=== PATIENT | male | born 1975 | race Caucasian/White ===

== ENCOUNTER 2016-11-06 01:27 | Emergency (ER) | payer BC, OTHER ==
--- NOTE | 2016-11-06 03:22 | ED NURSING NOTES ---
Clinical Report - Nurses [facility] [address] [place] [address] 11/06/2016 1:27 Patient: BISHOP GLOVER TRIAGE Triage time 01:Nov 06 2016. Acuity: LEVEL 3. Chief Complaint: SKIN LESION and BOIL. 01:36 11/06/16. SEPSIS SCREEN: Sepsis Screen. Negative (no infection suspected/documented). DASHAWN COMA SCORE: [place] Coma Scale: 15- eyes open spontaneously (4); best verbal response- oriented and converses (5); best motor response- obeys commands (6). --01:40 Abeba Powell R.N. 01:36 11/06/16. BP: 144/100. HR: 100. RR: 18. O2 saturation: 96%. Temp: 98.2 F. Pain level now 5/10. --01:40 Abeba Powell R.N. Weight: 155.1 kg stated. Height/Length: 74 inches Per Patient. BMI: 43.9. --01:36 Abeba Powell R.N. Medications MetFORMIN HCl Oral. --01:38 Abeba Powell R.N. Medication/allergy information source: the patient. --01:40 Abeba Powell R.N. Allergies No Known Drug Allergy. --01:38 Abeba Powell R.N. History Arrived by private vehicle. Historian: patient. Accompanied by family. Reported as (right antecubital fossa). This started today. Onset. (8 hours). It is described as burning and painful. No fever. 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 PAST MEDICAL HX: Immunizations: up-to-date. SOCIAL HX: Heavy tobacco smoker (cigarette)- 1 pack per day. Regular alcohol use. History of drug use: cocaine. (6 days ago). No infectious disease exposure. ABUSE ASSESSMENT: No report of abuse. SELF HARM ASSESSMENT: A self harm assessment was performed. The patient answered "no" to the question "Have you recently felt down, depressed, or hopeless?", "Have you noticed less interest or pleasure in doing things?", "Do you have thoughts of harming or killing yourself?", "Are you here because you tried to hurt yourself?", "Have you ever tried to hurt yourself before today?", "Have you recently had thoughts about harming or killing others?" and "Do you have any dangerous items in your possession?". NUTRITIONAL RISK ASSESSMENT: The nutritional risk assessment revealed no deficiencies. FUNCTIONAL ASSESSMENT: Functional assessment: no impairments noted. LEARNING NEEDS ASSESSMENT: The learning needs assessment revealed no barriers. SKIN INTEGRITY ASSESSMENT: Skin integrity risk assessment completed. No skin integrity risk identified. --01:40 Abeba Powell R.N. PROBLEMS: Hypertension. Leukocytosis. Sick Contact. Pancreatitis. Abscess. Pulmonary Embolism. Diabetes Mellitus. --01:38 Abeba Powell R.N. ADDITIONAL SURGERIES: Dental Surgery. Knee Surgery. --01:38 Abeba Powell R.N. Interventions ID band on patient. --01:40 Abeba Powell R.N. PHYSICAL ASSESSMENT 01:43 11/06/16. GENERAL / NEURO / PSYCH: Alert. Oriented X 4. HEENT: Pupils equal, round and reactive to light. Mucous membranes are pink. CVS: Capillary refill less than 2 seconds. GI / : Abdomen nontender. SKIN: Skin is warm and dry. Skin tenderness present- abcess at right AC fossa, pain and tenderness. Increased warmth present. Erythema present. --01:43 Abeba Powell R.N. NURSING PROGRESS NOTES 01:43 11/06/16. Patient identifiers checked. Call light placed in reach. Side rails up x 1. Bed placed in lowest position. Brakes of bed on. ( I&D cart to room). --01:43 Abeba Powell R.N. 02:30 11/06/2016 Bupivacaine Injection Injectable 0.5 % given. Allergies verified and confirmed 5 rights. (given locally by for i&D). --02:48 Abeba Powell R.N. 02:30 11/06/2016 Bactrim DS (Sulfamethoxazole-TMP DS) PO Tablets 2 tab given. Allergies verified and confirmed 5 rights. --02:49 Abeba Powell R.N. 02:52 11/06/2016 Keflex (Cephalexin) PO Capsules 500 mg given. Allergies verified and confirmed 5 rights. --02:55 Abeba Powell R.N. 02:52 11/06/2016 Hydrocodone-APAP (Hydrocodone-Acetaminophen) PO 5/325 mg Tablets 1 tab given. Allergies verified, confirmed 5 rights and sedative warning given to the patient. --02:55 Abeba Powell R.N. 02:52 11/06/2016 Zofran ODT (Ondansetron) PO Oral Disintegrating Tablets 4 mg given. Allergies verified and confirmed 5 rights. --02:55 Abeba Powell R.N. 02:54 11/06/2016 SILVER NITRATE APPLICATOR (Silver Nitrate Applicator) Topical Topical Solution 1 application. Allergies verified and confirmed 5 rights. (given to MD to apply locally). --02:54 Abeba Powell R.N. DISPOSITION / DISCHARGE 03:37 11/06/16. Condition at departure: improved and stable. The goals identified in the patient's plan of care were met. No learning barriers present. Reviewed medication(s) side effects, precautions, dosing and course information. Prescription(s) given to the patient. Reviewed referral to a primary care physician for followup. Summary of care provided to patient via paper. Patient verbalized understanding. Written instructions provided in [place]ij[place]. The patient was discharged home and accompanied by family. He left the Emergency Department ambulatory and via private vehicle. Family member driving. FALL RISK ASSESSMENT: Fall risk assessment completed. No fall risk identified. --03:37 Abeba Powell R.N. 03:37 11/06/16. BP: 148/88. HR: 90. RR: 16. O2 saturation: 100%. Temp: 98.0 F. Pain level now 4/10. --03:37 Abeba Powell R.N. Departure time: 03:37 Nov 06 2016. --03:37 Abeba Powell R.N. Locked/Released at 11/06/2016 3:37 by Abeba Powell R.N.
--- NOTE | 2016-11-06 03:22 | ED ORDER SUMMARY ---
..... Patient: BISHOP GLOVER OrderSheet [facility] VisitID: [id number] [place] [address] 41y, M Registration Date/Time: 11/06/2016 ORDER SHEET Weight: 155.1 kg (stated) Allergies: No Known Drug Allergy GENERAL ORDERS: Culture, Wound Surface (Arm) (right AC area) Urgent (02:51 11/06/2016 [facility]) (Ack 2:56 SBaldwin) (3:14 SBaldwin) MEDICATION ORDERS: Bupivacaine Injection 0.5 % (soln) (NOW, place at bedside) (02:31 11/06/2016 [facility]) (2:48 EInderbitzen R.N.) Bactrim DS PO (Tablet 800-160 mg) 2 tabs (NOW) (02:32 11/06/2016 [facility]) (2:49 EInderbitzen R.N.) Silver Nitrate Applicator Topical 1 application (NOW) (02:45 11/06/2016 [facility]) (2:54 EInderbitzen R.N.) Keflex PO 500 mg (NOW) (02:45 11/06/2016 [facility]) (2:55 EInderbitzen R.N.) Hydrocodone-APAP PO 5/325 mg (NOW, HIGH ALERT MEDICATION) (02:47 11/06/2016 [facility]) (2:55 EInderbitzen R.N.) Zofran ODT PO 4 mg (NOW) (02:47 11/06/2016 [facility]) (2:55 EInderbitzen R.N.) IV FLUIDS: ORDER SHEET NOTES: [Electronically signed by Abeba Powell R.N. (03:37 11/06/2016)] [Electronically signed by Keyshawn Ivey DO (16:26 11/06/2016)] [Electronically locked/signed by Abeba Powell R.N. (03:37 11/06/2016)]
--- NOTE | 2016-11-06 03:22 | ED CLINICAL REPORT ---
Clinical Report - Physicians/Mid Levels [facility] [address] [place] [address] 11/06/2016 1:27 Patient: BSIHOP GLOVER Time Seen: 02:22. Arrived- By private vehicle. Historian- patient. HISTORY OF PRESENT ILLNESS Chief Complaint: TENDER AREA. 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 It was gradual in onset and has been waxing/waning. It is described as painful. It has been located on the right upper extremity. A cause has been identified (injection drug use (right AC)). Similar symptoms previously: Recent medical care: Not recently seen/assessed. REVIEW OF SYSTEMS No fever, chills, difficulty breathing or vomiting. PAST HISTORY See nurses notes. PCP: Franki Denis PROBLEMS: Hypertension. Leukocytosis. Sick Contact. Pancreatitis. Abscess. Pulmonary Embolism. Diabetes Mellitus Substance abuse SURGERIES: Dental Surgery. Knee Surgery. Abscess I&D. SOCIAL HISTORY Smoker- current status unknown. Regular alcohol use. History of IV drug use: cocaine. 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 Recently used drugs days ago. ADDITIONAL NOTES The nursing notes have been reviewed. PHYSICAL EXAM Vital Signs: 11/06/2016 01:36 BP: 144/100. HR: 100. RR: 18. O2 saturation: 96%. Temp: 98.2 F. Appearance: Alert. Oriented X3. Anxious. Patient in mild distress. Eyes: Conjunctivae and eyelids normal. ENT: Nose normal. Respiratory: No respiratory distress. Breath sounds normal. Abdomen: Nontender and nontender. Obese. Skin: No cyanosis. No pallor. No diaphoresis. Medium tender indurated area with fluctuance and cellulitis (Right AC area). No pointing or drainage. Cellulitis. (Old scaring left AC area). Extremities: (Right AC area with cellulitis and induration; no lymphangitis). Neuro: Oriented X 3. No motor deficit. No sensory deficit. LABS, X-RAYS, AND EKG Microbiology: Abscess culture ordered. Pulse Oximetry: 11/06/2016 01:36 O2 saturation: 96%. (FIO2 - room air). Interpretation: normal. PROGRESS AND PROCEDURES Incision & Drainage of Abscess: The abscess is located in the right forearm (Right AC area). The risks of the procedure, benefits and alternatives were explained. Consent was obtained. Local anesthesia provided using 0.50% Marcaine no epi. The abscess was incised with a #11 surgical blade. A small amount of pus was drained. Cavity was irrigated with saline and packed with gauze. Sample obtained for cultures and gram stain. A dressing was applied. Estimated blood loss: 3 mL. ( Wound cauderized with AgNO). Course of Care: Hydrocodone/APAP 5 mg PO given. Bactrim DS 2 tabs PO. Keflex 500 mg PO given. Zofran 4 mg ODT PO given. Patient/family counseled. Old ED records reviewed. Disposition: Discharged. Condition: stable and improved. CLINICAL IMPRESSION Cellulitis of the right upper arm. Single superficial abscess to the right upper extremity with incision and drainage. Occasional substance abuse- tobacco (cigarettes), cocaine. INSTRUCTIONS Do not work for three days. Drink plenty of fluids. Do not smoke. Seek medical help to quit smoking. Warnings: Further evaluation is necessary. It is very important to follow up with a physician. SEDATIVE MEDICATION: You were given sedative medication during your visit. Do not drive or operate dangerous machinery. CONTROLLED SUBSTANCE WARNINGS. GENERAL WARNINGS: Return or contact your physician immediately if your condition worsens or changes unexpectedly, if not improving as expected, or if other problems arise. Your Current Medications: CONTINUE TAKING THE FOLLOWING MEDICATIONS: MetFORMIN HCl Oral. Prescription Medications: Hydrocodone/APAP 5mg / 325mg: take 1 orally every 8 hours as needed for pain. Dispense five (5). No refill. Bactrim DS 800 mg / 160 mg: take 1 tablet orally every 12 hours for 10 days. No refill. Substitution is permissible. Keflex 500 mg: take 1 capsule orally every 6 hours for 10 days. No refill. Substitution is permissible. OTC Medications: Acetaminophen (available over the counter): take according to label instructions. Motrin (available over the counter): take according to label instructions. Follow-up: Follow up with your doctor Franki Denis in about two days for wound check. (Electronically signed by Keyshawn Ivey DO 11/06/2016 16:26)
--- NOTE | 2016-11-06 03:22 | ED CLINICAL REPORT ---
Clinical Report - Physicians/Mid Levels [facility] [address] [place] [address] 11/06/2016 1:27 Patient: BISHOP GLOVER Time Seen: 02:22. Arrived- By private vehicle. Historian- patient. HISTORY OF PRESENT ILLNESS Chief Complaint: TENDER AREA. 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 It was gradual in onset and has been waxing/waning. It is described as painful. It has been located on the right upper extremity. A cause has been identified (injection drug use (right AC)). Similar symptoms previously: Recent medical care: Not recently seen/assessed. REVIEW OF SYSTEMS No fever, chills, difficulty breathing or vomiting. PAST HISTORY See nurses notes. PCP: Franki Denis PROBLEMS: Hypertension. Leukocytosis. Sick Contact. Pancreatitis. Abscess. Pulmonary Embolism. Diabetes Mellitus Substance abuse SURGERIES: Dental Surgery. Knee Surgery. Abscess I&D. SOCIAL HISTORY Smoker- current status unknown. Regular alcohol use. History of IV drug use: cocaine. 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 Recently used drugs days ago. ADDITIONAL NOTES The nursing notes have been reviewed. PHYSICAL EXAM Vital Signs: 11/06/2016 01:36 BP: 144/100. HR: 100. RR: 18. O2 saturation: 96%. Temp: 98.2 F. Appearance: Alert. Oriented X3. Anxious. Patient in mild distress. Eyes: Conjunctivae and eyelids normal. ENT: Nose normal. Respiratory: No respiratory distress. Breath sounds normal. Abdomen: Nontender and nontender. Obese. Skin: No cyanosis. No pallor. No diaphoresis. Medium tender indurated area with fluctuance and cellulitis (Right AC area). No pointing or drainage. Cellulitis. (Old scaring left AC area). Extremities: (Right AC area with cellulitis and induration; no lymphangitis). Neuro: Oriented X 3. No motor deficit. No sensory deficit. LABS, X-RAYS, AND EKG Microbiology: Abscess culture ordered. Pulse Oximetry: 11/06/2016 01:36 O2 saturation: 96%. (FIO2 - room air). Interpretation: normal. PROGRESS AND PROCEDURES Incision & Drainage of Abscess: The abscess is located in the right forearm (Right AC area). The risks of the procedure, benefits and alternatives were explained. Consent was obtained. Local anesthesia provided using 0.50% Marcaine no epi. The abscess was incised with a #11 surgical blade. A small amount of pus was drained. Cavity was irrigated with saline and packed with gauze. Sample obtained for cultures and gram stain. A dressing was applied. Estimated blood loss: 3 mL. ( Wound cauderized with AgNO). Course of Care: Hydrocodone/APAP 5 mg PO given. Bactrim DS 2 tabs PO. Keflex 500 mg PO given. Zofran 4 mg ODT PO given. Patient/family counseled. Old ED records reviewed. Disposition: Discharged. Condition: stable and improved. CLINICAL IMPRESSION Cellulitis of the right upper arm. Single superficial abscess to the right upper extremity with incision and drainage. Occasional substance abuse- tobacco (cigarettes), cocaine. INSTRUCTIONS Do not work for three days. Drink plenty of fluids. Do not smoke. Seek medical help to quit smoking. Warnings: Further evaluation is necessary. It is very important to follow up with a physician. SEDATIVE MEDICATION: You were given sedative medication during your visit. Do not drive or operate dangerous machinery. CONTROLLED SUBSTANCE WARNINGS. GENERAL WARNINGS: Return or contact your physician immediately if your condition worsens or changes unexpectedly, if not improving as expected, or if other problems arise. Your Current Medications: CONTINUE TAKING THE FOLLOWING MEDICATIONS: MetFORMIN HCl Oral. Prescription Medications: Hydrocodone/APAP 5mg / 325mg: take 1 orally every 8 hours as needed for pain. Dispense five (5). No refill. Bactrim DS 800 mg / 160 mg: take 1 tablet orally every 12 hours for 10 days. No refill. Substitution is permissible. Keflex 500 mg: take 1 capsule orally every 6 hours for 10 days. No refill. Substitution is permissible. OTC Medications: Acetaminophen (available over the counter): take according to label instructions. Motrin (available over the counter): take according to label instructions. Follow-up: Follow up with your doctor Franki Denis in about two days for wound check. (Electronically signed by Keyshawn Ivey DO 11/06/2016 16:26)
--- NOTE | 2016-11-06 03:22 | ED ORDER SUMMARY ---
..... Patient: BISHOP GLOVER OrderSheet [facility] VisitID: [id number] [place] [address] 41y, M Registration Date/Time: 11/06/2016 ORDER SHEET Weight: 155.1 kg (stated) Allergies: No Known Drug Allergy GENERAL ORDERS: Culture, Wound Surface (Arm) (right AC area) Urgent (02:51 11/06/2016 [facility]) (Ack 2:56 SBaldwin) (3:14 SBaldwin) MEDICATION ORDERS: Bupivacaine Injection 0.5 % (soln) (NOW, place at bedside) (02:31 11/06/2016 [facility]) (2:48 EInderbitzen R.N.) Bactrim DS PO (Tablet 800-160 mg) 2 tabs (NOW) (02:32 11/06/2016 [facility]) (2:49 EInderbitzen R.N.) Silver Nitrate Applicator Topical 1 application (NOW) (02:45 11/06/2016 [facility]) (2:54 EInderbitzen R.N.) Keflex PO 500 mg (NOW) (02:45 11/06/2016 [facility]) (2:55 EInderbitzen R.N.) Hydrocodone-APAP PO 5/325 mg (NOW, HIGH ALERT MEDICATION) (02:47 11/06/2016 [facility]) (2:55 EInderbitzen R.N.) Zofran ODT PO 4 mg (NOW) (02:47 11/06/2016 [facility]) (2:55 EInderbitzen R.N.) IV FLUIDS: ORDER SHEET NOTES: [Electronically signed by Abeba Powell R.N. (03:37 11/06/2016)] [Electronically signed by Keyshawn Ivey DO (16:26 11/06/2016)] [Electronically locked/signed by Abeba Powell R.N. (03:37 11/06/2016)]
--- NOTE | 2016-11-06 16:26 | ED MAR SUMMARY ---
..... Medication Administration Record [facility] [address] [place] [address] Patient: BISHOP GLOVER Visit ID: [id number] 41y, M Weight: 155.1 kg Height/Length: 74 in BMI: 43.9 ALLERGIES: No Known Drug Allergy Given 02:11/06/2016 Abeba Powell R.N. Medication Administered: BUPIVACAINE [INJECTION], Dose: 0.5 % Injectable Injection. Medication Ordered: Bupivacaine Injection 0.5 % (soln) (NOW, place at bedside). Given 02:11/06/2016 Abeba Powell R.N. Medication Administered: BACTRIM DS [PO] (SULFAMETHOXAZOLE-TMP DS), Dose: 2 tab Tablets PO. Medication Ordered: Bactrim DS PO (Tablet 800-160 mg) 2 tabs (NOW). Given 02:11/06/2016 Abeba Powell R.N. Medication Administered: KEFLEX [PO] (CEPHALEXIN), Dose: 500 mg Capsules PO. Medication Ordered: Keflex PO 500 mg (NOW). Given :11/06/2016 Abeba Powell R.N. Medication Administered: HYDROCODONE-APAP [PO] (HYDROCODONE-ACETAMINOPHEN), Dose: 1 tab 5/325 mg Tablets PO. Medication Ordered: Hydrocodone-APAP PO 5/325 mg (NOW, HIGH ALERT MEDICATION). Given 02:11/06/2016 Abeba Powell R.N. Medication Administered: ZOFRAN ODT [PO] (ONDANSETRON), Dose: 4 mg Oral Disintegrating Tablets PO. Medication Ordered: Zofran ODT PO 4 mg (NOW). Given 02:11/06/2016 Abeba Powell R.N. Medication Administered: SILVER NITRATE APPLICATOR [TOPICAL] (SILVER NITRATE APPLICATOR), Dose: 1 application Topical Solution Topical. Medication Ordered: Silver Nitrate Applicator Topical 1 application (NOW).
--- NOTE | 2016-11-06 16:26 | ED MAR SUMMARY ---
..... Medication Administration Record [facility] [address] [place] [address] Patient: BISHOP GLOVER Visit ID: [id number] 41y, M Weight: 155.1 kg Height/Length: 74 in BMI: 43.9 ALLERGIES: No Known Drug Allergy Given 02:11/06/2016 Abeba Powell R.N. Medication Administered: BUPIVACAINE [INJECTION], Dose: 0.5 % Injectable Injection. Medication Ordered: Bupivacaine Injection 0.5 % (soln) (NOW, place at bedside). Given 02:11/06/2016 Abeba Powell R.N. Medication Administered: BACTRIM DS [PO] (SULFAMETHOXAZOLE-TMP DS), Dose: 2 tab Tablets PO. Medication Ordered: Bactrim DS PO (Tablet 800-160 mg) 2 tabs (NOW). Given 02:11/06/2016 Abeba Powell R.N. Medication Administered: KEFLEX [PO] (CEPHALEXIN), Dose: 500 mg Capsules PO. Medication Ordered: Keflex PO 500 mg (NOW). Given :11/06/2016 Abeba Powell R.N. Medication Administered: HYDROCODONE-APAP [PO] (HYDROCODONE-ACETAMINOPHEN), Dose: 1 tab 5/325 mg Tablets PO. Medication Ordered: Hydrocodone-APAP PO 5/325 mg (NOW, HIGH ALERT MEDICATION). Given 02:11/06/2016 Abeba Powell R.N. Medication Administered: ZOFRAN ODT [PO] (ONDANSETRON), Dose: 4 mg Oral Disintegrating Tablets PO. Medication Ordered: Zofran ODT PO 4 mg (NOW). Given 02:11/06/2016 Abeba Powell R.N. Medication Administered: SILVER NITRATE APPLICATOR [TOPICAL] (SILVER NITRATE APPLICATOR), Dose: 1 application Topical Solution Topical. Medication Ordered: Silver Nitrate Applicator Topical 1 application (NOW).
--- NOTE | 2016-11-06 16:26 | ED MED RECONCILIATION SUMMARY ---
Patient: BISHOP GLOVER Medication Reconciliation Report [facility] VisitID: [id number] [place] [address] 41y, M Registration Date/Time: 11/06/2016 Weight: 155.1 kg Height/Length: 74 in. BMI: 43.9 ALLERGIES: No Known Drug Allergy The patient's Home Medications are listed below: CONTINUE TAKING THE FOLLOWING MEDICATIONS: MetFORMIN HCl Oral The source(s) of the original Home Medication information: patient The following Medications were given to the patient in the Emergency Department: Bupivacaine [Injection] Injection 0.5 %, administered: 11/06/2016 2:30:00 AM Bactrim DS [PO] PO 2 tab, administered: 11/06/2016 2:30:00 AM SILVER NITRATE APPLICATOR [TOPICAL] Topical 1 application, administered: 11/06/2016 2:54:00 AM Keflex [PO] PO 500 mg, administered: 11/06/2016 2:52:00 AM Hydrocodone-APAP [PO] PO 1 tab, administered: 11/06/2016 2:52:00 AM Zofran ODT [PO] PO 4 mg, administered: 11/06/2016 2:52:00 AM The following Medications were prescribed to the patient: Acetaminophen (available over the counter): take according to label instructions. -- Keyshawn Ivey DO Motrin (available over the counter): take according to label instructions. -- Keyshawn Ivey DO Hydrocodone/APAP 5mg / 325mg: take 1 orally every 8 hours as needed for pain. Dispense five (5). No refill. -- Keyshawn Ivey DO Bactrim DS 800 mg / 160 mg: take 1 tablet orally every 12 hours for 10 days. No refill. Substitution is permissible. -- Keyshawn Ivey DO Keflex 500 mg: take 1 capsule orally every 6 hours for 10 days. No refill. Substitution is permissible. -- Keyshawn Ivey DO
--- NOTE | 2016-11-06 16:26 | ED DISCHARGE INSTRUCTIONS ---
Patient: BISHOP GLOVER General Instructions [facility] VisitID: [id number] [place] [address] 41y, M Registration Date/Time: 11/06/2016 Cellulitis of the right upper arm. Single superficial abscess to the right upper extremity with incision and drainage. Occasional substance abuse- tobacco (cigarettes), cocaine. INSTRUCTIONS Do not work for three days. Drink plenty of fluids. Do not smoke. Seek medical help to quit smoking. Warnings: Further evaluation is necessary. It is very important to follow up with a physician. SEDATIVE MEDICATION: You were given sedative medication during your visit. Do not drive or operate dangerous machinery. CONTROLLED SUBSTANCE WARNINGS. GENERAL WARNINGS: Return or contact your physician immediately if your condition worsens or changes unexpectedly, if not improving as expected, or if other problems arise. Your Current Medications: CONTINUE TAKING THE FOLLOWING MEDICATIONS: MetFORMIN HCl Oral. Prescription Medications: Hydrocodone/APAP 5mg / 325mg: take 1 orally every 8 hours as needed for pain. Dispense five (5). No refill. Bactrim DS 800 mg / 160 mg: take 1 tablet orally every 12 hours for 10 days. No refill. Substitution is permissible. Keflex 500 mg: take 1 capsule orally every 6 hours for 10 days. No refill. Substitution is permissible. OTC Medications: Acetaminophen (available over the counter): take according to label instructions. Motrin (available over the counter): take according to label instructions. Follow-up: Follow up with your doctor Franki Denis in about two days for wound check. ADDITIONAL INFORMATION Cellulitis You have an infection of the skin known as cellulitis. This usually starts with a scrape, cut, insect bite, blister or other opening in the skin which becomes infected. This is a serious condition. It must be watched closely to be sure the infection is not spreading. With antibiotic treatment, the size of the red area will gradually shrink in size until the skin returns to normal. This will take 7-10 days. The red area should never increase in size once the antibiotic medicine has been started. Occasionally, an infection will be resistant to one antibiotic and another one will have to be used. Home Care: 1) Limit the use of the affected part, since excess movement can cause the infection to spread. 2) If the infection is on your leg, walk as little as possible during the first few days of the treatment. Keep your leg elevated while sitting. This will reduce swelling. 3) Take all of the antibiotic medicine exactly as directed until it is gone. Be careful not to miss any doses, especially during the first seven days. Follow Up with your doctor or this facility as directed. Check the infected area daily for the warning signs listed below. Get Prompt Medical Attention if any of the following occur: -- Spreading area of redness -- Increasing swelling or pain -- Appearance of pus or drainage -- Fever over 100.4 F (38.0 C) oral, or over 101.4 F (38.6 C) rectal, after two days on antibiotics Abscess [Incision & Drainage] An abscess (sometimes called a boil) occurs when bacteria get trapped under the skin and begin to grow. Pus forms inside the abscess as the body responds to the bacteria. An abscess can occur with an insect bite, ingrown hair, blocked oil gland, pimple, cyst, or puncture wound. Treatment of your abscess has required an incision to drain the pus. If the abscess pocket was large, a gauze packing may have been inserted. This will need to be removed and possibly replaced on your next visit. Antibiotics are not required in the treatment of a simple abscess, unless the infection is spreading into the skin around the wound (known as cellulitis). Healing of the wound will take about one to two weeks depending on the size of the abscess. Healthy tissue will grow from the bottom and sides of the opening until it seals over. Home Care: The wound may drain for the first two days. Cover the wound with a clean dry dressing. If the dressing becomes soaked with blood or pus, change it. If a gauze packing was placed inside the abscess cavity, you may be advised to remove it yourself. You may do this in the shower. Once the packing is removed, you should wash the area in the shower or bath 3 to 4 times a day, until the skin opening has closed. If you were prescribed antibiotics, take them as directed until they are all gone. You may use acetaminophen (Tylenol) or ibuprofen (Motrin, Advil) to control pain, unless another pain medicine was prescribed. [ NOTE: If you have liver disease or ever had a stomach ulcer, talk with your doctor before using these medicines.] Follow Up with your doctor as advised by our staff. If a gauze packing was inserted in your wound, it should be removed in 1-2 days. Check your wound every day for the signs of worsening infection listed below. Get Prompt Medical Attention if any of the following occur: Increasing redness or swelling Red streaks in the skin leading away from the wound Increasing local pain or swelling Continued pus draining from the wound two days after treatment Fever of 100.4F (38C) or higher, or as directed by your healthcare provider Cellulitis You have an infection of the skin known as cellulitis. This usually starts with a scrape, cut, insect bite, blister or other opening in the skin which becomes infected. This is a serious condition. It must be watched closely to be sure the infection is not spreading. With antibiotic treatment, the size of the red area will gradually shrink in size until the skin returns to normal. This will take 7-10 days. The red area should never increase in size once the antibiotic medicine has been started. Occasionally, an infection will be resistant to one antibiotic and another one will have to be used. Home Care: 1) Limit the use of the affected part, since excess movement can cause the infection to spread. 2) If the infection is on your leg, walk as little as possible during the first few days of the treatment. Keep your leg elevated while sitting. This will reduce swelling. 3) Take all of the antibiotic medicine exactly as directed until it is gone. Be careful not to miss any doses, especially during the first seven days. Follow Up with your doctor or this facility as directed. Check the infected area daily for the warning signs listed below. Get Prompt Medical Attention if any of the following occur: -- Spreading area of redness -- Increasing swelling or pain -- Appearance of pus or drainage -- Fever over 100.4 F (38.0 C) oral, or over 101.4 F (38.6 C) rectal, after two days on antibiotics How To Quit Smoking Smoking is one of the hardest habits to break. About half of all those who have ever smoked have been able to quit, and most of those (about 70%) who still smoke want to quit. Here are some of the best ways to stop smoking. Keep Trying: It takes most smokers about 8 tries before they are finally able to fully quit. So, the more often you try and fail, the better your chance of quitting the next time! So, don't give up! Go Cold [place]: Most ex-smokers quit cold turkey. Trying to cut back gradually doesn't seem to work as well, perhaps because it continues the smoking habit. Also, it is possible to fool yourself by inhaling more while smoking fewer cigarettes. This results in the same amount of nicotine in your body! Get Support: Support programs can make an important difference, especially for the heavy smoker. These groups offer lectures, methods to change your behavior and peer support. Call the free national Quitline for more information. 649-WFEM-QSP (279-492-9137). Low-cost or free programs are offered by many hospitals, local chapters of the [place] [employer] (353-502-8414) and the [employer] [employer] (048-229-2999). Support at home is important too. Non-smokers can help by offering praise and encouragement. If the smoker fails to quit, encourage them to try again! Dlol-Qec-Gzuvrlc Medicines: For those who can't quit on their own, Nicotine Replacement Therapy (NRT) may make quitting much easier. Certain aids such as the nicotine patch, gum and lozenge are available without a prescription. However, it is best to use these under the guidance of your doctor. The skin patch provides a steady supply of nicotine to the body. Nicotine gum and lozenge gives temporary bursts of low levels of nicotine. Both methods take the edge off the craving for cigarettes. WARNING: If you feel symptoms of nicotine overdose, such as nausea, vomiting, dizziness, weakness, or fast heartbeat, stop using these and see your doctor. Prescription Medicines: After evaluating your smoking patterns and prior attempts at quitting, your doctor may offer a prescription medicine such as bupropion (Zyban, Wellbutrin), varenicline (Chantix, Champix), a niocotine inhaler or nasal spray. Each has its unique advantage and side effects which your doctor can review with you. Health Benefits Of Quitting: The benefits of quitting start right away and keep improving the longer you go without smokin minutes: blood pressure and pulse return to normal 8 hours: oxygen levels return to normal 2 days: ability to smell and taste begins to improve as damaged nerves start to regrow 2-3 weeks: circulation and lung function improves 1-9 months: decreased cough, congestion and shortness of breath; less tired 1 year: risk of heart attack decreases by half 5 years: risk of lung cancer decreases by half; risk of stroke becomes the same as a non-smoker For information about how to quit smoking, visit the following links: National Cancer [place] , Clearing the Air, Quit Smoking Today - an online booklet. http://www.smokefree.gov/pubs/clearing_the_air.pdf Smokefree.gov http://smokefree.gov/ QuitNet http://www.quitnet.com/ Hydrocodone Bitartrate, Acetaminophen Oral tablet What is this medicine? ACETAMINOPHEN; HYDROCODONE (a set a DAVINA anastacio fen; sebastian droe KOE done) is a pain reliever. It is used to treat mild to moderate pain. How should I use this medicine? Take this medicine by mouth. Swallow it with a full glass of water. Follow the directions on the prescription label. If the medicine upsets your stomach, take the medicine with food or milk. Do not take more than you are told to take. Talk to your marketing and outreach coordinator regarding the use of this medicine in children. This medicine is not approved for use in children. What side effects may I notice from receiving this medicine? Side effects that you should report to your doctor or health home health care social worker as soon as possible: allergic reactions like skin rash, itching or hives, swelling of the face, lips, or tongue breathing problems confusion feeling faint or lightheaded, falls stomach pain yellowing of the eyes or skin Side effects that usually do not require medical attention (report to your doctor or health home health care social worker if they continue or are bothersome): nausea, vomiting stomach upset What may interact with this medicine? alcohol antihistamines isoniazid medicines for depression, anxiety, or psychotic disturbances medicines for sleep muscle relaxants naltrexone narcotic medicines (opiates) for pain phenobarbital ritonavir tramadol What if I miss a dose? If you miss a dose, take it as soon as you can. If it is almost time for your next dose, take only that dose. Do not take double or extra doses. Where should I keep my medicine? Keep out of the reach of children. This medicine can be abused. Keep your medicine in a safe place to protect it from theft. Do not share this medicine with anyone. Selling or giving away this medicine is dangerous and against the law. Store at room temperature between 15 and 30 degrees C (59 and 86 degrees F). Protect from light. Keep container tightly closed. Throw away any unused medicine after the expiration date. Discard unused medicine and used packaging carefully. Pets and children can be harmed if they find used or lost packages. What should I tell my health care provider before I take this medicine? They need to know if you have any of these conditions: brain tumor Crohn's disease, inflammatory bowel disease, or ulcerative colitis drink more than 3 alcohol-containing drinks per day drug abuse or addiction head injury heart or circulation problems kidney disease or problems going to the bathroom liver disease lung disease, asthma, or breathing problems an unusual or allergic reaction to acetaminophen, hydrocodone, other opioid analgesics, other medicines, foods, dyes, or preservatives or trying to get breast-feeding What should I watch for while using this medicine? Tell your doctor or health home health care social worker if your pain does not go away, if it gets worse, or if you have new or a different type of pain. You may develop tolerance to the medicine. Tolerance means that you will need a higher dose of the medicine for pain relief. Tolerance is normal and is expected if you take the medicine for a long time. Do not suddenly stop taking your medicine because you may develop a severe reaction. Your body becomes used to the medicine. This does NOT mean you are addicted. Addiction is a behavior related to getting and using a drug for a non-medical reason. If you have pain, you have a medical reason to take pain medicine. Your doctor will tell you how much medicine to take. If your doctor wants you to stop the medicine, the dose will be slowly lowered over time to avoid any side effects. You may get drowsy or dizzy when you first start taking the medicine or change doses. Do not drive, use machinery, or do anything that may be dangerous until you know how the medicine affects you. Stand or sit up slowly. There are different types of narcotic medicines (opiates) for pain. If you take more than one type at the same time, you may have more side effects. Give your health care provider a list of all medicines you use. Your doctor will tell you how much medicine to take. Do not take more medicine than directed. Call emergency for help if you have problems breathing. The medicine will cause constipation. Try to have a bowel movement at least every 2 to 3 days. If you do not have a bowel movement for 3 days, call your doctor or health home health care social worker. Too much acetaminophen can be very dangerous. Do not take Tylenol (acetaminophen) or medicines that contain acetaminophen with this medicine. Many non-prescription medicines contain acetaminophen. Always read the labels carefully. Sulfamethoxazole, Trimethoprim Oral tablet What is this medicine? SULFAMETHOXAZOLE; TRIMETHOPRIM or SMX-TMP (suhl fuh meth OK raquel zohl; trye METH oh prim) is a combination of a sulfonamide antibiotic and a second antibiotic, trimethoprim. It is used to treat or prevent certain kinds of bacterial infections. It will not work for colds, flu, or other viral infections. How should I use this medicine? Take this medicine by mouth with a full glass of water. Follow the directions on the prescription label. Take your medicine at regular intervals. Do not take it more often than directed. Do not skip doses or stop your medicine early. Talk to your marketing and outreach coordinator regarding the use of this medicine in children. Special care may be needed. This medicine has been used in children as young as 2 months of age. What side effects may I notice from receiving this medicine? Side effects that you should report to your doctor or health home health care social worker as soon as possible: allergic reactions like skin rash or hives, swelling of the face, lips, or tongue breathing problems fever or chills, sore throat irregular heartbeat, chest pain joint or muscle pain pain or difficulty passing urine red pinpoint spots on skin redness, blistering, peeling or loosening of the skin, including inside the mouth unusual bleeding or bruising unusually weak or tired yellowing of the eyes or skin Side effects that usually do not require medical attention (report to your doctor or health home health care social worker if they continue or are bothersome): diarrhea dizziness headache loss of appetite nausea, vomiting nervousness What may interact with this medicine? Do not take this medicine with any of the following medications: aminobenzoate potassium dofetilide metronidazole This medicine may also interact with the following medications: RENETTA inhibitors like benazepril, enalapril, lisinopril, and ramipril cyclosporine digoxin diuretics indomethacin medicines for diabetes methenamine methotrexate phenytoin potassium supplements pyrimethamine sulfinpyrazone tricyclic antidepressants warfarin What if I miss a dose? If you miss a dose, take it as soon as you can. If it is almost time for your next dose, take only that dose. Do not take double or extra doses. Where should I keep my medicine? Keep out of the reach of children. Store at room temperature between 20 to 25 degrees C (68 to 77 degrees F). Protect from light. Throw away any unused medicine after the expiration date. What should I tell my health care provider before I take this medicine? They need to know if you have any of these conditions: anemia asthma being treated with anticonvulsants if you frequently drink alcohol containing drinks kidney disease liver disease low level of folic acid or [id number] dehydrogenase poor nutrition or malabsorption porphyria severe allergies thyroid disorder an unusual or allergic reaction to sulfamethoxazole, trimethoprim, sulfa drugs, other medicines, foods, dyes, or preservatives or trying to get breast-feeding What should I watch for while using this medicine? Tell your doctor or health home health care social worker if your symptoms do not improve. Drink several glasses of water a day to reduce the risk of kidney problems. Do not treat diarrhea with over the counter products. Contact your doctor if you have diarrhea that lasts more than 2 days or if it is severe and watery. This medicine can make you more sensitive to the sun. Keep out of the sun. If you cannot avoid being in the sun, wear protective clothing and use a sunscreen. Do not use sun lamps or tanning beds/booths. Cephalexin Monohydrate Oral tablet What is this medicine? CEPHALEXIN (sef a VENESSA in) is a cephalosporin antibiotic. It is used to treat certain kinds of bacterial infections It will not work for colds, flu, or other viral infections. How should I use this medicine? Take this medicine by mouth with a full glass of water. Follow the directions on the prescription label. This medicine can be taken with or without food. Take your medicine at regular intervals. Do not take your medicine more often than directed. Take all of your medicine as directed even if you think you are better. Do not skip doses or stop your medicine early. Talk to your marketing and outreach coordinator regarding the use of this medicine in children. While this drug may be prescribed for selected conditions, precautions do apply. What side effects may I notice from receiving this medicine? Side effects that you should report to your doctor or health home health care social worker as soon as possible: allergic reactions like skin rash, itching or hives, swelling of the face, lips, or tongue breathing problems pain or trouble passing urine redness, blistering, peeling or loosening of the skin, including inside the mouth severe or watery diarrhea unusually weak or tired yellowing of the eyes, skin Side effects that usually do not require medical attention (report to your doctor or health home health care social worker if they continue or are bothersome): gas or heartburn genital or anal irritation headache joint or muscle pain nausea, vomiting What may interact with this medicine? probenecid some other antibiotics What if I miss a dose? If you miss a dose, take it as soon as you can. If it is almost time for your next dose, take only that dose. Do not take double or extra doses. There should be at least 4 to 6 hours between doses. Where should I keep my medicine? Keep out of the reach of children. Store at room temperature between 59 and 86 degrees F (15 and 30 degrees C). Throw away any unused medicine after the expiration date. What should I tell my health care provider before I take this medicine? They need to know if you have any of these conditions: kidney disease stomach or intestine problems, especially colitis an unusual or allergic reaction to cephalexin, other cephalosporins, penicillins, other antibiotics, medicines, foods, dyes or preservatives or trying to get breast-feeding What should I watch for while using this medicine? Tell your doctor or health home health care social worker if your symptoms do not begin to improve in a few days. Do not treat diarrhea with over the counter products. Contact your doctor if you have diarrhea that lasts more than 2 days or if it is severe and watery. If you have diabetes, you may get a false-positive result for sugar in your urine. Check with your doctor or health home health care social worker. Acetaminophen Oral tablet What is this medicine? ACETAMINOPHEN (a set a DAVINA anastacio fen) is a pain reliever. It is used to treat mild pain and fever. How should I use this medicine? Take this medicine by mouth with a glass of water. Follow the directions on the package or prescription label. Take your medicine at regular intervals. Do not take your medicine more often than directed. Talk to your marketing and outreach coordinator regarding the use of this medicine in children. While this drug may be prescribed for children as young as 6 years of age for selected conditions, precautions do apply. What side effects may I notice from receiving this medicine? Side effects that you should report to your doctor or health home health care social worker as soon as possible: allergic reactions like skin rash, itching or hives, swelling of the face, lips, or tongue breathing problems fever or sore throat redness, blistering, peeling or loosening of the skin, including inside the mouth trouble passing urine or change in the amount of urine unusual bleeding or bruising unusually weak or tired yellowing of the eyes or skin Side effects that usually do not require medical attention (report to your doctor or health home health care social worker if they continue or are bothersome): headache nausea, stomach upset What may interact with this medicine? alcohol imatinib isoniazid other medicines with acetaminophen What if I miss a dose? If you miss a dose, take it as soon as you can. If it is almost time for your next dose, take only that dose. Do not take double or extra doses. Where should I keep my medicine? Keep out of reach of children. Store at room temperature between 20 and 25 degrees C (68 and 77 degrees F). Protect from moisture and heat. Throw away any unused medicine after the expiration date. What should I tell my health care provider before I take this medicine? They need to know if you have any of these conditions: if you frequently drink alcohol containing drinks liver disease an unusual or allergic reaction to acetaminophen, other medicines, foods, dyes or preservatives or trying to get breast-feeding What should I watch for while using this medicine? Tell your doctor or health home health care social worker if the pain lasts more than 10 days (5 days for children), if it gets worse, or if there is a new or different kind of pain. Also, check with your doctor if a fever lasts for more than 3 days. Do not take other medicines that contain acetaminophen with this medicine. Always read labels carefully. If you have questions, ask your doctor or pharmacist. If you take too much acetaminophen get medical help right away. Too much acetaminophen can be very dangerous and cause liver damage. Even if you do not have symptoms, it is important to get help right away. Ibuprofen Oral tablet What is this medicine? IBUPROFEN (eye BYOO proe fen) is a non-steroidal anti-inflammatory drug (NSAID). It is used for dental pain, fever, headaches or migraines, osteoarthritis, rheumatoid arthritis, or painful monthly periods. It can also relieve minor aches and pains caused by a cold, flu, or sore throat. How should I use this medicine? Take this medicine by mouth with a glass of water. Follow the directions on the prescription label. Take this medicine with food if your stomach gets upset. Try to not lie down for at least 10 minutes after you take the medicine. Take your medicine at regular intervals. Do not take your medicine more often than directed. A special MedGuide will be given to you by the pharmacist with each prescription and refill. Be sure to read this information carefully each time. Talk to your marketing and outreach coordinator regarding the use of this medicine in children. Special care may be needed. What side effects may I notice from receiving this medicine? Side effects that you should report to your doctor or health home health care social worker as soon as possible: allergic reactions like skin rash, itching or hives, swelling of the face, lips, or tongue black or bloody stools, blood in the urine or in vomit breathing problems changes in vision chest pain general ill feeling or flu-like symptoms nausea or vomiting redness, blistering, peeling or loosening of the skin, including inside the mouth slurred speech or weakness on one side of the body stomach pain unexplained weight gain or swelling unusually weak or tired yellowing of eyes or skin Side effects that usually do not require medical attention (report to your doctor or health home health care social worker if they continue or are bothersome): constipation or diarrhea dizziness gas or heartburn stomach upset What may interact with this medicine? Do not take this medicine with any of the following medications: cidofovir ketorolac methotrexate pemetrexed This medicine may also interact with the following medications: alcohol aspirin diuretics lithium other drugs for inflammation like prednisone warfarin What if I miss a dose? If you miss a dose, take it as soon as you can. If it is almost time for your next dose, take only that dose. Do not take double or extra doses. Where should I keep my medicine? Keep out of the reach of children. Store at room temperature between 15 and 30 degrees C (59 and 86 degrees F). Keep container tightly closed. Throw away any unused medicine after the expiration date. What should I tell my health care provider before I take this medicine? They need to know if you have any of these conditions: asthma cigarette smoker drink more than 3 alcohol containing drinks a day heart disease or circulation problems such as heart failure or leg edema (fluid retention) high blood pressure kidney disease liver disease stomach bleeding or ulcers an unusual or allergic reaction to ibuprofen, aspirin, other NSAIDS, other medicines, foods, dyes, or preservatives or trying to get breast-feeding What should I watch for while using this medicine? Tell your doctor or healthcare professional if your symptoms do not start to get better or if they get worse. This medicine does not prevent heart attack or stroke. In fact, this medicine may increase the chance of a heart attack or stroke. The chance may increase with longer use of this medicine and in people who have heart disease. If you take aspirin to prevent heart attack or stroke, talk with your doctor or health home health care social worker. Do not take other medicines that contain aspirin, ibuprofen, or naproxen with this medicine. Side effects such as stomach upset, nausea, or ulcers may be more likely to occur. Many medicines available without a prescription should not be taken with this medicine. This medicine can cause ulcers and bleeding in the stomach and intestines at any time during treatment. Ulcers and bleeding can happen without warning symptoms and can cause . To reduce your risk, do not smoke cigarettes or drink alcohol while you are taking this medicine. You may get drowsy or dizzy. Do not drive, use machinery, or do anything that needs mental alertness until you know how this medicine affects you. Do not stand or sit up quickly, especially if you are an older patient. This reduces the risk of dizzy or fainting spells. This medicine can cause you to bleed more easily. Try to avoid damage to your teeth and gums when you brush or floss your teeth. You have been given the following additional information: Cellulitis Abscess, Incision And Drainage Cellulitis Smoking Cessation Hydrocodone Bitartrate, Acetaminophen Oral tablet Sulfamethoxazole, Trimethoprim Oral tablet Cephalexin Monohydrate Oral tablet Acetaminophen Oral tablet Ibuprofen Oral tablet Do not work for three days. (Electronically signed by Keyshawn Ivey DO 11/06/2016 16:26)
--- NOTE | 2016-11-06 16:26 | ED MED RECONCILIATION SUMMARY ---
Patient: BISHOP GLOVER Medication Reconciliation Report [facility] VisitID: [id number] [place] [address] 41y, M Registration Date/Time: 11/06/2016 Weight: 155.1 kg Height/Length: 74 in. BMI: 43.9 ALLERGIES: No Known Drug Allergy The patient's Home Medications are listed below: CONTINUE TAKING THE FOLLOWING MEDICATIONS: MetFORMIN HCl Oral The source(s) of the original Home Medication information: patient The following Medications were given to the patient in the Emergency Department: Bupivacaine [Injection] Injection 0.5 %, administered: 11/06/2016 2:30:00 AM Bactrim DS [PO] PO 2 tab, administered: 11/06/2016 2:30:00 AM SILVER NITRATE APPLICATOR [TOPICAL] Topical 1 application, administered: 11/06/2016 2:54:00 AM Keflex [PO] PO 500 mg, administered: 11/06/2016 2:52:00 AM Hydrocodone-APAP [PO] PO 1 tab, administered: 11/06/2016 2:52:00 AM Zofran ODT [PO] PO 4 mg, administered: 11/06/2016 2:52:00 AM The following Medications were prescribed to the patient: Acetaminophen (available over the counter): take according to label instructions. -- Keyshawn Ivey DO Motrin (available over the counter): take according to label instructions. -- Keyshawn Ivey DO Hydrocodone/APAP 5mg / 325mg: take 1 orally every 8 hours as needed for pain. Dispense five (5). No refill. -- Keyshawn Ivey DO Bactrim DS 800 mg / 160 mg: take 1 tablet orally every 12 hours for 10 days. No refill. Substitution is permissible. -- Keyshawn Ivey DO Keflex 500 mg: take 1 capsule orally every 6 hours for 10 days. No refill. Substitution is permissible. -- Keyshawn Ivey DO
== END 2016-11-06 03:37 | disposition home or self-care (01) ==
LOC: ED SRH 01:27
DX: L03.113 Cellulitis of right upper limb (principal); L02.413 Cutaneous abscess of right upper limb; F14.10 Cocaine abuse, uncomplicated; I10 Essential (primary) hypertension; E11.9 Type 2 diabetes mellitus without complications; Z79.84 Long term (current) use of oral hypoglycemic drugs; Z72.0 Tobacco use
CPT/HCPCS: 90131; 90309

== ENCOUNTER 2016-11-08 03:48 | Inpatient (IN) | payer BC, OTHER ==
[~2016-11-08] VITALS: Ht 188 cm; Wt 154.3 kg
[2016-11-08] VITALS (7 sets, daily range): BP systolic 114–152; BP diastolic 60–93
--- NOTE | 2016-11-08 05:32 | ED NURSING NOTES ---
Clinical Report - Nurses [facility] [address] [place] [address] 11/08/2016 3:49 Patient: BISHOP GLOVER TRIAGE Triage time 03:55. Chief Complaint: RIGHT UPPER EXTREMITY PAIN, SWELLING and REDNESS. --03:57 TonchandlerB R.N. Acuity: LEVEL 3. --03:58 TonchandlerB, R.N. 03:58 11/08/16. BP: 156/80. HR: 118. RR: 20. O2 saturation: 100%. Temp: 98.4 F. Pain level now: 12/23. --03:58 TonchandlerB R.N. Weight: 155.1 kg. Height/Length: 74 inches. BMI: 43.9. --03:58 Julia R.N. Medications MetFORMIN HCl Oral. --03:57 ReaB R.N. Allergies No Known Drug Allergy. --03:57 TonNikki R.N. History Arrived by private vehicle. Historian: patient. Accompanied by family. It is described as radiating to the right upper extremity and shoulder. ( pt states he injected cocaine into the arm about 1 week ago). Treatment [employer]: Recently seen in a medical facility; treatment- pain medication and antibiotic. --03:57 TonchandlerB R.N. SOCIAL HX: Smoker- current status unknown. Alcohol use. No drug use. No infectious disease exposure. FALL RISK ASSESSMENT: Fall risk assessment completed. No fall risk identified. NUTRITIONAL RISK ASSESSMENT: The nutritional risk assessment revealed no deficiencies. FUNCTIONAL ASSESSMENT: Functional assessment: no impairments noted. LEARNING NEEDS ASSESSMENT: The learning needs assessment revealed no barriers. SKIN INTEGRITY ASSESSMENT: Skin integrity risk assessment completed. No skin integrity risk identified. --03:58 Julia R.N. ( pt is taking antibiotics). --03:59 TonchandlerB R.N. Interventions ID band on patient. To treatment room. --03:58 Julia R.N. PHYSICAL ASSESSMENT Ambulatory to room. GENERAL / NEURO / PSYCH: Oriented X 4. Alert. Appears in no acute distress. EXTREMITIES: Right arm: tenderness, swelling and erythema. SKIN: Skin intact. Skin is warm and dry. --03:59 Varun Dumont Patient gowned. --03:59 Varun Dumont NURSING PROGRESS NOTES 04:25 11/08/2016 Site #1 started via IV in the right hand with an 20g angiocath, with aseptic technique and good blood return; one attempt. Blood drawn: rainbow set. Labeled in the presence of the patient and sent to the lab. Saline lock flushed. --04:40 Varun Dumont 04:41 11/08/2016 Zofran (Ondansetron HCl) IVP 4 mg given over 1 minute(s) via site #1. Allergies verified and confirmed 5 rights. IV patency established. IV site checked: no pain, redness, or swelling. IV flushed thoroughly pre- and post-medication administration. IVP given by RN. --04:41 Varun Dumont 04:41 11/08/2016 Morphine IVP 4 mg given over 2 minute(s) via site #1. Allergies verified, confirmed 5 rights and sedative warning given to the patient. IV patency established. IV site checked: no pain, redness, or swelling. IV flushed thoroughly pre- and post-medication administration. IVP given by RN. --04:41 Varun Dumont 04:42 11/08/2016 Started bag #1 1000 mL IV Fluids IV NS (Saline); at 999 mL/hr over 1 hour(s) via site #1 via IV pump. Allergies verified and confirmed 5 rights. IV patency established. IV site checked: no pain, redness, or swelling. IV flushed thoroughly pre- and post-medication administration. --04:42 Varun Dumont 04:42 11/08/2016 Started 600 mg of Clindamycin IVPB; at 100 mL/hr over 30 minute(s) via site #1 via IV pump. Allergies verified and confirmed 5 rights. IV patency established. IV site checked: no pain, redness, or swelling. IV flushed thoroughly pre- and post-medication administration. --04:42 Varun Dumont Two patient identifiers checked. Call light placed in reach. Side rails up x 1. Bed placed in lowest position. Brakes of bed on. --04:43 Christine DumontN. 05:11 11/08/2016 Clindamycin IVPB Discontinued: bag #1 completed. Total amount infused: 50 mL. IV patency established. IV site checked: no pain, redness, or swelling. IV flushed thoroughly. --05:11 Christine DumontN. 05:12 11/08/2016 Started 1 gm of Vancomycin IVPB; at 200 mL/hr over 1 hour(s) via site #1 via IV pump. Allergies verified and confirmed 5 rights. IV patency established. IV site checked: no pain, redness, or swelling. IV flushed thoroughly pre- and post-medication administration. --05:12 Varun Dumont ( pt requesting more pain medication at this time, MD aware). --05:40 Christine DumontN. 05:50 11/08/16. BP: 127/72. HR: 97. RR: 18. O2 saturation: 97%. Temp: deferred. Pain level now: 11/23. --05:52 Tereso Dumont.N. 05:54 11/08/2016 Vancomycin IVPB Discontinued: bag #1 completed. Total amount infused: 200 mL. IV patency established. IV site checked: no pain, redness, or swelling. IV flushed thoroughly. --05:54 Christine DuomntN. 06:14 11/08/2016 IV Fluids IV NS Discontinued: bag #1 completed. Total amount infused: 1000 mL. IV patency established. IV site checked: no pain, redness, or swelling. IV flushed thoroughly. --06:14 Varun Dumont DISPOSITION / DISCHARGE Admitted. Report was given to a nurse via a phone call. Report included patient's care, treatment, medications, reviewed medication reconcilliation, and condition (including any recent changes or anticipated changes). All questions were answered. Report was acknowledged and care was transferred. Bed obtained and ready. --06:05 Varun Dumont Departure time: 06:29. Transported via stretcher by nurse. --06:29 Varun Dumont Condition at departure: stable. --06:29 Varun Dumont 06:29 11/08/16. BP: deferred. HR: deferred. RR: deferred. O2 saturation: deferred. Temp: deferred. Pain level now: 12/23. --06:30 Varun Dumont Locked/Released at 11/08/2016 6:30 by Varun Dumont
--- NOTE | 2016-11-08 05:32 | ED ORDER SUMMARY ---
..... Patient: BISHOP GLOVER OrderSheet [facility] VisitID: [id number] [address] [place] [address] 41y, M Registration Date/Time: 11/08/2016 ORDER SHEET Weight: 155.1 kg Allergies: No Known Drug Allergy GENERAL ORDERS: Blood Culture (Yes) (keflex and bactrim) Urgent (04:13 11/08/2016 Mounika Hawthorne) (Ack 4:16 AMcQuoid ER Tech1) (4:29 TBowen R.N.) CBC w Diff Urgent (04:11/08/2016 Mounika Hawthorne) (Ack 4:16 AMcQuoid ER Tech1) (4:29 TBowen R.N.) CMP Urgent (04:11/08/2016 Mounika Hawthorne) (Ack 4:16 AMcQuoid ER Tech1) (4:29 TBowen R.N.) Pulse oximeter (04:11/08/2016 Mounika Hawthorne) (Ack 4:16 AMcQuoid ER Tech1) (4:29 TBowen R.N.) Lactate, Serum Urgent (04:11/08/2016 Mounika Hawthorne) (Ack 4:16 AMcQuoid ER Tech1) (5:32 JDeElena R.N.) PCT (Procalcitonin) Urgent (04:11/08/2016 Mounika Hawthorne) (Ack 4:16 AMcQuoid ER Tech1) (4:29 TBowen R.N.) UA-Culture if indicated Urgent (04:11/08/2016 Mounika Hawthorne) (Ack 4:18 AMcQuoid ER Tech1) (4:42 TBowen R.N.) Urine Drug Screen Urgent (04:11/08/2016 Mounika Hawthorne) (Ack 4:18 AMcQuoid ER Tech1) (4:42 TBowen R.N.) MEDICATION ORDERS: IV FLUIDS: IV NS : initial bolus 1000 mL (1000 mL/hr), then none - for X1 (NOW) (04:11/08/2016 Mounika Hawthorne) (4:42 TBowen R.N.) Zofran IV 4 mg (NOW) (04:14 11/08/2016 Mounika Hawthorne) (4:41 TBowdali R.N.) Vancomycin IV 1 gm/200mL (NOW) (04:15 11/08/2016 Mounika Hawthorne) (5:12 TBowdali R.N.) Clindamycin IV 600 mg/50mL (NOW) (04:15 11/08/2016 Mounika Hawthorne) (4:42 TBowdali R.N.) Morphine IV 4 mg (HIGH ALERT MEDICATION, NOW) (04:30 11/08/2016 Mounika Hawthorne) (4:41 TBowdali R.N.) ORDER SHEET NOTES: [Electronically signed by Rea Hernandez R.N. (06:30 11/08/2016)] [Electronically signed by Oscar Dangelo Dr. (06:43 11/08/2016)] [Electronically locked/signed by Rea Hernandez R.N. (06:30 11/08/2016)]
--- NOTE | 2016-11-08 05:32 | ED NURSING NOTES ---
Clinical Report - Nurses [facility] [address] [place] [address] 11/08/2016 3:49 Patient: BISHOP GLOVER TRIAGE Triage time 03:55. Chief Complaint: RIGHT UPPER EXTREMITY PAIN, SWELLING and REDNESS. --03:57 TonchandlerB R.N. Acuity: LEVEL 3. --03:58 TonchandlerB, R.N. 03:58 11/08/16. BP: 156/80. HR: 118. RR: 20. O2 saturation: 100%. Temp: 98.4 F. Pain level now: 12/23. --03:58 TonchandlerB R.N. Weight: 155.1 kg. Height/Length: 74 inches. BMI: 43.9. --03:58 Julia R.N. Medications MetFORMIN HCl Oral. --03:57 ReaB R.N. Allergies No Known Drug Allergy. --03:57 TonNikki R.N. History Arrived by private vehicle. Historian: patient. Accompanied by family. It is described as radiating to the right upper extremity and shoulder. ( pt states he injected cocaine into the arm about 1 week ago). 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 --03:57 TonchandlerB R.N. SOCIAL HX: Smoker- current status unknown. Alcohol use. No drug use. No infectious disease exposure. FALL RISK ASSESSMENT: Fall risk assessment completed. No fall risk identified. NUTRITIONAL RISK ASSESSMENT: The nutritional risk assessment revealed no deficiencies. FUNCTIONAL ASSESSMENT: Functional assessment: no impairments noted. LEARNING NEEDS ASSESSMENT: The learning needs assessment revealed no barriers. SKIN INTEGRITY ASSESSMENT: Skin integrity risk assessment completed. No skin integrity risk identified. --03:58 Julia R.N. ( pt is taking antibiotics). --03:59 TonchandlerB R.N. Interventions ID band on patient. To treatment room. --03:58 Julia R.N. PHYSICAL ASSESSMENT Ambulatory to room. GENERAL / NEURO / PSYCH: Oriented X 4. Alert. Appears in no acute distress. EXTREMITIES: Right arm: tenderness, swelling and erythema. SKIN: Skin intact. Skin is warm and dry. --03:59 Varun Dumont Patient gowned. --03:59 Varun Dumont NURSING PROGRESS NOTES 04:25 11/08/2016 Site #1 started via IV in the right hand with an 20g angiocath, with aseptic technique and good blood return; one attempt. Blood drawn: rainbow set. Labeled in the presence of the patient and sent to the lab. Saline lock flushed. --04:40 Varun Dumont 04:41 11/08/2016 Zofran (Ondansetron HCl) IVP 4 mg given over 1 minute(s) via site #1. Allergies verified and confirmed 5 rights. IV patency established. IV site checked: no pain, redness, or swelling. IV flushed thoroughly pre- and post-medication administration. IVP given by RN. --04:41 Varun Dumont 04:41 11/08/2016 Morphine IVP 4 mg given over 2 minute(s) via site #1. Allergies verified, confirmed 5 rights and sedative warning given to the patient. IV patency established. IV site checked: no pain, redness, or swelling. IV flushed thoroughly pre- and post-medication administration. IVP given by RN. --04:41 Varun Dumont 04:42 11/08/2016 Started bag #1 1000 mL IV Fluids IV NS (Saline); at 999 mL/hr over 1 hour(s) via site #1 via IV pump. Allergies verified and confirmed 5 rights. IV patency established. IV site checked: no pain, redness, or swelling. IV flushed thoroughly pre- and post-medication administration. --04:42 Varun Dumont 04:42 11/08/2016 Started 600 mg of Clindamycin IVPB; at 100 mL/hr over 30 minute(s) via site #1 via IV pump. Allergies verified and confirmed 5 rights. IV patency established. IV site checked: no pain, redness, or swelling. IV flushed thoroughly pre- and post-medication administration. --04:42 Varun Dumont Two patient identifiers checked. Call light placed in reach. Side rails up x 1. Bed placed in lowest position. Brakes of bed on. --04:43 Christine DumontN. 05:11 11/08/2016 Clindamycin IVPB Discontinued: bag #1 completed. Total amount infused: 50 mL. IV patency established. IV site checked: no pain, redness, or swelling. IV flushed thoroughly. --05:11 Christine DumontN. 05:12 11/08/2016 Started 1 gm of Vancomycin IVPB; at 200 mL/hr over 1 hour(s) via site #1 via IV pump. Allergies verified and confirmed 5 rights. IV patency established. IV site checked: no pain, redness, or swelling. IV flushed thoroughly pre- and post-medication administration. --05:12 Varun Dumont ( pt requesting more pain medication at this time, MD aware). --05:40 Christine DumontN. 05:50 11/08/16. BP: 127/72. HR: 97. RR: 18. O2 saturation: 97%. Temp: deferred. Pain level now: 11/23. --05:52 Tereso Dumont.N. 05:54 11/08/2016 Vancomycin IVPB Discontinued: bag #1 completed. Total amount infused: 200 mL. IV patency established. IV site checked: no pain, redness, or swelling. IV flushed thoroughly. --05:54 Christine DumontN. 06:14 11/08/2016 IV Fluids IV NS Discontinued: bag #1 completed. Total amount infused: 1000 mL. IV patency established. IV site checked: no pain, redness, or swelling. IV flushed thoroughly. --06:14 Varun Dumont DISPOSITION / DISCHARGE Admitted. Report was given to a nurse via a phone call. Report included patient's care, treatment, medications, reviewed medication reconcilliation, and condition (including any recent changes or anticipated changes). All questions were answered. Report was acknowledged and care was transferred. Bed obtained and ready. --06:05 Varun Dumont Departure time: 06:29. Transported via stretcher by nurse. --06:29 Varun Dumotn Condition at departure: stable. --06:29 Varun Dumont 06:29 11/08/16. BP: deferred. HR: deferred. RR: deferred. O2 saturation: deferred. Temp: deferred. Pain level now: 12/23. --06:30 Varun Dumont Locked/Released at 11/08/2016 6:30 by Varun Dumont
--- NOTE | 2016-11-08 05:32 | ED ORDER SUMMARY ---
..... Patient: BISHOP GLOVER OrderSheet [facility] VisitID: [id number] [address] [place] [address] 41y, M Registration Date/Time: 11/08/2016 ORDER SHEET Weight: 155.1 kg Allergies: No Known Drug Allergy GENERAL ORDERS: Blood Culture (Yes) (keflex and bactrim) Urgent (04:13 11/08/2016 Mounika Hawthorne) (Ack 4:16 AMcQuoid ER Tech1) (4:29 TBowen R.N.) CBC w Diff Urgent (04:11/08/2016 Mounika Hawthorne) (Ack 4:16 AMcQuoid ER Tech1) (4:29 TBowen R.N.) CMP Urgent (04:11/08/2016 Mounika Hawthorne) (Ack 4:16 AMcQuoid ER Tech1) (4:29 TBowen R.N.) Pulse oximeter (04:11/08/2016 Mounika Hawthorne) (Ack 4:16 AMcQuoid ER Tech1) (4:29 TBowen R.N.) Lactate, Serum Urgent (04:11/08/2016 Mounika Hawthorne) (Ack 4:16 AMcQuoid ER Tech1) (5:32 JDeElena R.N.) PCT (Procalcitonin) Urgent (04:11/08/2016 Mounika Hawthorne) (Ack 4:16 AMcQuoid ER Tech1) (4:29 TBowen R.N.) UA-Culture if indicated Urgent (04:11/08/2016 Mounika Hawthorne) (Ack 4:18 AMcQuoid ER Tech1) (4:42 TBowen R.N.) Urine Drug Screen Urgent (04:11/08/2016 Mounika Hawthorne) (Ack 4:18 AMcQuoid ER Tech1) (4:42 TBowen R.N.) MEDICATION ORDERS: IV FLUIDS: IV NS : initial bolus 1000 mL (1000 mL/hr), then none - for X1 (NOW) (04:11/08/2016 Mounika Hawthorne) (4:42 TBowen R.N.) Zofran IV 4 mg (NOW) (04:14 11/08/2016 Mounika Hawthorne) (4:41 TBowdali R.N.) Vancomycin IV 1 gm/200mL (NOW) (04:15 11/08/2016 Mounika Hawthorne) (5:12 TBowdali R.N.) Clindamycin IV 600 mg/50mL (NOW) (04:15 11/08/2016 Mounika Hawthorne) (4:42 TBowdali R.N.) Morphine IV 4 mg (HIGH ALERT MEDICATION, NOW) (04:30 11/08/2016 Mounika Hawthorne) (4:41 TBowdali R.N.) ORDER SHEET NOTES: [Electronically signed by Rea Hernandez R.N. (06:30 11/08/2016)] [Electronically signed by Oscar Dangelo Dr. (06:43 11/08/2016)] [Electronically locked/signed by Rea Hernandez R.N. (06:30 11/08/2016)]
--- NOTE | 2016-11-08 06:11 | Progress Note ---
Subjective General 41 y.o male with right arm cellulitis post injection with cocaine. Has DM on metformin. Plan admit IV Abx, general surgery eval, pain control
--- NOTE | 2016-11-08 06:11 | Progress Note ---
Subjective General 41 y.o male with right arm cellulitis post injection with cocaine. Has DM on metformin. Plan admit IV Abx, general surgery eval, pain control
--- NOTE | 2016-11-08 06:43 | ED MAR SUMMARY ---
..... Medication Administration Record [facility] [address] [place] [address] Patient: BISHOP GOLVER Visit ID: [id number] 41y, M Weight: 155.1 kg Height/Length: 74 in BMI: 43.9 ALLERGIES: No Known Drug Allergy Given 04:41 11/08/2016 Varun Dumont Medication Administered: ZOFRAN [IVP] (ONDANSETRON HCL), Dose: 4 mg IVP over 1 minute(s), Site: #1 right hand. Medication Ordered: Zofran IV 4 mg (NOW). Given 04:41 11/08/2016 Varun Dumont Medication Administered: MORPHINE [IVP], Dose: 4 mg IVP over 2 minute(s), Site: #1 right hand. Medication Ordered: Morphine IV 4 mg (HIGH ALERT MEDICATION, NOW). Start 04:42 11/08/2016 Varun Dumont, Stop 06:14 11/08/2016 Varun Dumont Medication Administered: IV NS (SALINE), Dose: IV Fluids over 1 hour(s), Rate: 999 mL/hr, Dispensed: 1000 mL bag, Site: #1 right hand. Medication Ordered: IV NS : initial bolus 1000 mL (1000 mL/hr), then none - for X1 (NOW). Start 04:42 11/08/2016 Varun Dumont, Stop 05:11 11/08/2016 Varun Dumont Medication Administered: CLINDAMYCIN [IVPB], Dose: 600 mg IVPB over 30 minute(s), Rate: 100 mL/hr, Site: #1 right hand. Medication Ordered: Clindamycin IV 600 mg/50mL (NOW). Start 05:12 11/08/2016 Varun Dumont, Stop 05:54 11/08/2016 Varun Dumont Medication Administered: VANCOMYCIN [IVPB], Dose: 1 gm IVPB over 1 hour(s), Rate: 200 mL/hr, Site: #1 right hand. Medication Ordered: Vancomycin IV 1 gm/200mL (NOW).
--- NOTE | 2016-11-08 06:43 | ED MED RECONCILIATION SUMMARY ---
Patient: BISHOP GLOVRE Medication Reconciliation Report [facility] VisitID: [id number] [address] [place] [address] 41y, M Registration Date/Time: 11/08/2016 Weight: 155.1 kg Height/Length: 74 in. BMI: 43.9 ALLERGIES: No Known Drug Allergy The patient's Home Medications are listed below: THE FOLLOWING MEDICATIONS NEED TO BE RECONCILED: MetFORMIN HCl Oral The source(s) of the original Home Medication information: Not obtained. The following Medications were given to the patient in the Emergency Department: Zofran [IVP] IVP 4 mg, administered: 11/08/2016 4:41:00 AM Morphine [IVP] IVP 4 mg, administered: 11/08/2016 4:41:00 AM IV NS IV Fluids bolus 0, then 999 mL/hr, administered: 11/08/2016 4:42:00 AM Clindamycin [IVPB] IVPB bolus 0, then 600 mg 100 mL/hr, administered: 11/08/2016 4:42:00 AM Vancomycin [IVPB] IVPB bolus 0, then 1 gm 200 mL/hr, administered: 11/08/2016 5:12:00 AM The following Medications were prescribed to the patient: None.
--- NOTE | 2016-11-08 06:43 | ED MED RECONCILIATION SUMMARY ---
Patient: BISHOP GLOVER Medication Reconciliation Report [facility] VisitID: [id number] [address] [place] [address] 41y, M Registration Date/Time: 11/08/2016 Weight: 155.1 kg Height/Length: 74 in. BMI: 43.9 ALLERGIES: No Known Drug Allergy The patient's Home Medications are listed below: THE FOLLOWING MEDICATIONS NEED TO BE RECONCILED: MetFORMIN HCl Oral The source(s) of the original Home Medication information: Not obtained. The following Medications were given to the patient in the Emergency Department: Zofran [IVP] IVP 4 mg, administered: 11/08/2016 4:41:00 AM Morphine [IVP] IVP 4 mg, administered: 11/08/2016 4:41:00 AM IV NS IV Fluids bolus 0, then 999 mL/hr, administered: 11/08/2016 4:42:00 AM Clindamycin [IVPB] IVPB bolus 0, then 600 mg 100 mL/hr, administered: 11/08/2016 4:42:00 AM Vancomycin [IVPB] IVPB bolus 0, then 1 gm 200 mL/hr, administered: 11/08/2016 5:12:00 AM The following Medications were prescribed to the patient: None.
--- NOTE | 2016-11-08 06:43 | ED MAR SUMMARY ---
..... Medication Administration Record [facility] [address] [place] [address] Patient: BISHOP GLOVER Visit ID: [id number] 41y, M Weight: 155.1 kg Height/Length: 74 in BMI: 43.9 ALLERGIES: No Known Drug Allergy Given 04:41 11/08/2016 Varun Dumont Medication Administered: ZOFRAN [IVP] (ONDANSETRON HCL), Dose: 4 mg IVP over 1 minute(s), Site: #1 right hand. Medication Ordered: Zofran IV 4 mg (NOW). Given 04:41 11/08/2016 Varun Dumont Medication Administered: MORPHINE [IVP], Dose: 4 mg IVP over 2 minute(s), Site: #1 right hand. Medication Ordered: Morphine IV 4 mg (HIGH ALERT MEDICATION, NOW). Start 04:42 11/08/2016 Varun Dumont, Stop 06:14 11/08/2016 Varun Dumont Medication Administered: IV NS (SALINE), Dose: IV Fluids over 1 hour(s), Rate: 999 mL/hr, Dispensed: 1000 mL bag, Site: #1 right hand. Medication Ordered: IV NS : initial bolus 1000 mL (1000 mL/hr), then none - for X1 (NOW). Start 04:42 11/08/2016 Varun Dumont, Stop 05:11 11/08/2016 Varun Dumont Medication Administered: CLINDAMYCIN [IVPB], Dose: 600 mg IVPB over 30 minute(s), Rate: 100 mL/hr, Site: #1 right hand. Medication Ordered: Clindamycin IV 600 mg/50mL (NOW). Start 05:12 11/08/2016 Varun Dumont, Stop 05:54 11/08/2016 Varun Dumont Medication Administered: VANCOMYCIN [IVPB], Dose: 1 gm IVPB over 1 hour(s), Rate: 200 mL/hr, Site: #1 right hand. Medication Ordered: Vancomycin IV 1 gm/200mL (NOW).
--- NOTE | 2016-11-08 06:43 | ED CLINICAL REPORT ---
Clinical Report - Physicians/Mid Levels [facility] [address] [place] [address] 11/08/2016 3:49 Patient: BISHOP GLOVER Time Seen: 0414. Arrived- By private vehicle. Historian- patient. HISTORY OF PRESENT ILLNESS Chief Complaint: SKIN RASH and BOIL. This started past several days and is still present and worsening. It was gradual in onset and has been constant but is not gone now. It is described as painful. It has been located on the right upper extremity. A possible cause has been identified (IV drug use). (states he was here and got abx and drained. states it got better for a day but then suddenly got worse again.). Similar symptoms previously: Recent medical care: Not recently seen/assessed. REVIEW OF SYSTEMS No fever, chills, cough, difficulty breathing or chest pain. No abdominal pain or vomiting. He has had nausea. All systems otherwise negative, except as recorded above. PAST HISTORY See nurses notes. Tetanus immunization status is up-to-date. Medications: MetFORMIN HCl Oral. Allergies: No Known Drug Allergy. SOCIAL HISTORY Smoker- current status unknown. Alcohol use. History of drug use. No recent travel. Is a local resident. ADDITIONAL NOTES The nursing notes have been reviewed. PHYSICAL EXAM Vital Signs: 11/08/2016 03:58 BP: 156/80. HR: 118. RR: 20. O2 saturation: 100%. Temp: 98.4 F. Pain level now: 5/10. Tachycardic. Oxygen saturation normal. Appearance: Alert. Oriented X3. No acute distress. Eyes: Pupils equal, round and reactive to light. Conjunctivae and eyelids normal. ENT: Ears normal. Nose normal. Pharynx normal. Neck: Neck supple. CVS: Normal heart rate and rhythm. Heart sounds normal. Respiratory: No respiratory distress. Breath sounds normal. Chest nontender. Abdomen: Nontender. No organomegaly. Skin: Single large tender indurated area to right arm. Medium area of cellulitis to right arm and right forearm. (small area consistent with recent surgical drainaged. Small amount of purulent material expressed from wound with palpation. No crepitus. No streaking. No mily abnormalities. No other area of tenderness.). LABS, X-RAYS, AND EKG Laboratory Tests: UA-Culture if indicated: (CRISTEL: 11/08/2016 04:30) ( MsgRcvd 11/08/2016 05:06) Final results Test Result Flag Units (Reference) URINE COLOR YELLOW URINE APPEARANCE CLEAR URINE GLUCOSE NEGATIVE (NEGATIVE) URINE BILIRUBIN NEGATIVE (NEGATIVE) URINE KETONE NEGATIVE (NEGATIVE) URINE SPECIFIC GRAVITY <= 1.005 L (1.010-1.030) URINE PH 5.5 (5.0-8.0) URINE PROTEIN NEGATIVE (NEGATIVE) URINE UROBILINOGEN 0.2 EU/dL (0.2-1.0) URINE NITRITE NEGATIVE (NEGATIVE) URINE BLOOD NEGATIVE (NEGATIVE) URINE LEUK ESTERASE NEGATIVE (NEGATIVE) URINE RBC NONE SEEN rbc/hpf (0-1) URINE WBC RARE wbc/hpf (0-1) URINE EPITHELIAL CELLS NONE SEEN EPI/hpf (0-5) URINE BACTERIA NONE SEEN (NONE SEEN) URINE COMMENT CULT NOT INDICATED URINE CULTURES ARE SET-UP BASED ON THE FOLLOWING CRITERIA:POSITIVE NITRITEPOSITIVE LEUKOCYTE ESTERASEGREATER THAN 10 WHITE BLOOD CELLSMODERATE (2+) OR GREATER BACTERIA CBC w Diff: (CRISTEL: 11/08/2016 04:20) ( MigRcvd 11/08/2016 04:57) Final results Test Result Flag Units (Reference) WHITE BLOOD COUNT 17.3 H K/uL (4.5-11.5) RED BLOOD COUNT 5.10 M/uL (4.50-5.90) HEMOGLOBIN 15.7 gm/dL (13.5-17.5) HEMATOCRIT 45.4 % (41.0-53.0) MEAN CELL VOLUME 89 fL (80-100) MEAN CORPUSCULAR HGB 31 pg (26-34) MEAN CORPUSCULAR HGB CONC 35 g/dL (31-37) RED CELL DISTRIBUTION WIDTH 13.0 % (11.6-14.8) PLATELET COUNT 266 K/uL (150-400) NEUTROPHIL % 71.8 % (50-75) LYMPH % 19.2 L % (25-40) MONO % 7.4 % (3-14) EOSINOPHIL % 1.4 % (0-4) BASOPHIL % 0.2 % (0-2) Urine Drug Screen: (CRISTEL: 11/08/2016 04:30) ( [facility] 11/08/2016 05:24) Final results Test Result Flag Units (Reference) AMPHETAMINE/METHAMPHETAMINE NEGATIVE (NEGATIVE) BARBITURATE NEGATIVE (NEGATIVE) BENZODIAZEPINE NEGATIVE (NEGATIVE) CANNABINOID NEGATIVE (NEGATIVE) COCAINE NEGATIVE (NEGATIVE) ECSTASY NEGATIVE (NEGATIVE) METHADONE NEGATIVE (NEGATIVE) OPIATE NEGATIVE (NEGATIVE) The urine drug screen is a qualitative screening test fordrug overdose and abuse. All screen results should beconsidered as presumptive.Drugs screened for are as follows:BenzodiazepinesCocaineAmphetamines/MetamphetaminesTHC (Tetrahydrocannabinol)OpiatesBarbituratesEcstasyMethadonePositive results are unconfirmed. For confirmation, notifythe lab for the specimen to be sent to the reference lab.All confirmations must be performed by a differentmethodology.The ingestion of natural herbal and plant productscontaining Ephedra/Ephedra metabolites can produce in urineone or more substances capable of cross reacting withamphetamine/methamphetamine immunoassays. These testsprovide a preliminary result only. A more specificalternative chemical method must be used to obtain aconfirmed analytical result. Lactate, Serum: (CRISTEL: 11/08/2016 04:44) ( [facility] 11/08/2016 05:24) Final results Test Result Flag Units (Reference) LACTIC ACID 1.3 mmol/L (0.4-2.0) [id number]: (CRISTEL: 11/08/2016 04:20) ( [facility] 11/08/2016 05:18) Final results Test Result Flag Units (Reference) PROCALCITONIN <0.5 ng/mL (0-0.5) PCT Concentration: Interpretation : Risk/option for action PCT <=0.5 ng/mL : Systemic : Low risk forinfection(sepsis): progression to severeis not likely. : systemic infection.Local bacterial : CAUTION-PCT levelsinfection is : below 0.5 ng/mL do notpossible. : exclude an infection,because localizedinfections (withoutsystemic signs) may beassociated with suchlow levels. If PCT ismeasured very earlyafter a bacterialchallenge (usually <6hours), these valuesmay still be low. Inthis case PCT shouldbe re-assessed 6-24hours later. PCT >0.5 and : Systemic infection: Moderate risk for<= 2 ng/mL : (sepsis) is : progression to severepossible, but : systemic infection.other conditions : The patient should beare known to : closely monitoredelevate PCT. : both clinically andby re-assessing PCTwithin 6-24 hours. PCT > 2 ng/mL : Systemic infection: High risk for(sepsis) is likely: progression to severeunless other : systemic infection.causes are known. : PCT >= 10 ng/mL : Important systemic: High likelihood ofinflammatory : severe sepsis orresponse, almost : septic shock.exclusively due to:severe bacterial :sepsis or septic :shock. : CMP: (CRISTEL: 11/08/2016 04:20) ( MsgRcvd 11/08/2016 04:53) Final results Test Result Flag Units (Reference) GLUCOSE 158 H mg/dL (70-110) BUN 12 mg/dL (7-18) CREATININE 0.8 mg/dL (0.6-1.3) Estimated GFR >60 mL/min Estimated GFR- >60 mL/min Note: Persistent reduction over 3 months in eGFR<60 mL/min/1.73 m2 defines CKD. Patients with eGFR values>=60 mL/min/1.73 m2 may also have CKD if evidence ofpersistent proteinuria. Additional information may be foundat www.[email or web address].org. SODIUM 137 mmol/L (136-145) POTASSIUM 3.8 mmol/L (3.5-5.1) CHLORIDE 101 mmol/L (98-107) CARBON DIOXIDE 26 mmol/L (21-32) CALCIUM 9.0 mg/dL (8.5-10.1) TOTAL PROTEIN 7.7 g/dL (6.4-8.2) ALBUMIN 3.6 g/dL (3.3-5.0) BILIRUBIN, TOTAL 0.5 mg/dL (0.0-1.0) ALKALINE PHOSPHATASE 80 U/L (46-116) AST (SGOT) 21 U/L (15-37) ALT (SGPT) 34 U/L (12-78) . PROGRESS AND PROCEDURES Course of Care: he patient is a pleasant 41-year-old male with past medical history significant for recent visit to the hospital for incision and drainage of an abscess. past medical record was reviewed. No significant growth noted from wound culture. The patient is reporting worsening symptoms on outpatient antibiotic therapy. Because of the significant area of cellulitis and failed outpatient therapy, patient likely need to be admitted to the hospital. Laboratory studies have been ordered. Antibiotics have been started after blood cultures were obtained. Patient is agreeable to the treatment and plan. Bedside ultrasound does not show any signs of fluid collection that would be unable to draining at the bedside. Workup shows patient to have elevated white blood cell count over 17. Initial heart rate is noted to be over 100. Patient needs Sirs criteria. Because of the patient's infection, patient istechnically septic. And buttocks as well as fluids have been given. We'll be cautious with fluid administrationto prevent any signs of fluid overload. Patient's tachycardia and blood pressure are noted to be normal after 1 L fluid as been given. Do not feel patient requires another liter of fluid. No evidence of dehydration. Had spoken with the patient regards his workup here in the emergency department. Patient is agreeable to the treatment and plan. Discussed case with hospitalist. Will accept at the patient. No further recommendations made. Patient was admitted to the hospital Patient is stable for floor level of care as see vital signs of been noted to normalize. Critical care performed (30 minutes). Time is exclusive of separately billable procedures. Time includes: direct patient care, patient reassessment, coordination of patient care, review of patient's medical records, medical consultation and documentation of patient care. (Electronically signed by Oscar Dangelo Dr. 11/08/2016 6:43)
--- NOTE | 2016-11-08 13:27 | CONSULTATION REPORT ---
DATE OF CONSULTATION: 11/08/2016 CHIEF COMPLAINT: Swelling, right upper arm HISTORY OF PRESENT ILLNESS: A 41-year-old male with previous history of drug abuse. 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 Approximately a week ago he injected cocaine into his area of the right biceps and developed swelling and tenderness in this area. He was seen in the emergency department where he had a small incision made by the emergency department physician, and drainage. This did not relieve the discomfort, and the swelling became worse. MEDICAL/SURGICAL HISTORY: Diabetes. MEDICATIONS: 1. Metformin 1000 mg daily. ALLERGIES: 1. NO KNOWN MEDICAL ALLERGIES. SOCIAL HISTORY: . He has 2 sons, 1 daughter, alive and well. The patient smokes a pack of cigarettes per day. He does drink alcohol socially. He has history of drug exposure recently, 1 week ago, cocaine injection. 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 history: Served in the [employer] for 12 years, serving in [place] , [place] war. FAMILY HISTORY: Mother age 68, in good health. Father at age 48 from cirrhosis of the liver. One half-brother, one sister. Another half-sister. They are alive and well. REVIEW OF SYSTEMS: No history of hepatitis, jaundice, or rheumatic fever, blood transfusion, heart murmurs requiring antibiotics, or bleeding tendencies. The remaining 12-point review of systems is negative. PHYSICAL EXAMINATION: GENERAL: The patient is awake, alert, conversant and does not appear to be in any acute distress. VITAL SIGNS: Blood pressure 156/80. Temperature 98.4, pulse 118, respirations 20. HEENT: Normocephalic, atraumatic. Pupils equal and reactive. No scleral icterus. External auditory canals clear. No nasal septal defect or discharge. Moist mucous membranes. NECK: Supple. No JVD, carotid bruit or adenopathy. LUNGS: Clear. No rales, rhonchi, or wheezing. HEART: Regular rhythm. No murmurs. ABDOMEN: Obese, nontender, no masses. EXTREMITIES: The patient's right wrist measures 20 cm, left wrist 21.5 cm, right forearm 34 cm, left forearm 32.5 cm, right biceps 39.5 cm, left biceps 35.5 cm. The patient has a 10 x 7 cm firm, erythematous, tender area of swelling in the base of the right biceps, just above the elbow. It does not appear to have any purulent drainage and is fluctuant. NEUROLOGIC: The patient is grossly intact, with no focal motor neurologic deficits. SKIN: Warm and dry with no peripheral cyanosis. The patient has multiple upper extremity tattoos and the area of erythema on the antebrachial and biceps region. LYMPHATICS: No cervical, supraclavicular, axillary, or groin adenopathy. LAB/IMAGING: White count 17.3, hemoglobin 15.7, and 45.4 respectively. Drug screen is negative. IMPRESSION: 1. Incompletely drained abscess, right biceps 2. Type II diabetic PLAN: We will take the patient to the operating room and drain this adequately and pack it. I have explained this to the patient; he understands and agrees to proceed. All questions were answered to his satisfaction. We will schedule appropriately.
--- NOTE | 2016-11-08 13:34 | HISTORY AND PHYSICAL ---
ADMITTED: 11/08/2016 CHIEF COMPLAINT: 1. Cellulitis 2. Arm wound pain HISTORY OF PRESENT ILLNESS: The patient is a 41-year-old male who has generally been healthy. A few days ago he injected himself with cocaine in his right arm antecubital fossa, and has post had some swelling and pain. Seen in the emergency department , was incised and drained and also given antibiotics by mouth. He went home, had worse swelling and pain, and returned to the emergency department for further evaluation and treatment. In the ED, he was found to have increased swelling and redness in spite of his antibiotic use, and the decision was made for admission for IV antibiotics. MEDICAL/SURGICAL HISTORY: Medical history: He has had obesity, recent diagnosis of diabetes with A1c of 6.4, diverticulitis and abdominal pain. He has also had bilateral pulmonary emboli. Past surgical history: He has had right knee surgery about 6 times, otherwise none. MEDICATIONS: 1. Metformin 1000 mg b.i.d. 2. Vyvanse 60 mg p.o. daily. ALLERGIES: 1. CEPHALEXIN, POSSIBLY WITH A RASH AROUND HIS PENIS POST TAKING IT NOW. SOCIAL HISTORY: He is . He rarely has some alcohol. He had not had drug use for a number of years; however, he just recently shot the cocaine. Tobacco: He smokes a little under a pack per day. FAMILY HISTORY: Mom is doing well. His father of cirrhosis of the liver and alcoholism. REVIEW OF SYSTEMS: He has this rash. He has left upper abdomen pain and some swelling and tenderness. He has his right arm pain and swelling. He denies any black or bloody stools. Denies any difficulty with chest pain or shortness of breath. PHYSICAL EXAMINATION: GENERAL: He is an alert male who appears to be comfortable. VITAL SIGNS: His blood pressure is 156/80, heart rate of 118, respirations 20, saturating 100%, temperature is 98.4. HEENT: Extraocular movements intact. Pupils equal, round, and reactive to light. Oropharynx is with moist mucous membranes. NECK: Supple, without lymphadenopathy. LUNGS: Clear to auscultation bilaterally. HEART: Regular rate and rhythm. No murmur. ABDOMEN: Obese. It is minimally tender in the left upper abdomen, otherwise nontender. EXTREMITIES: His right arm has swelling and redness at the antecubital fossa. With pressing over the area, there is a little discharge coming out of a puncture wound over his mid antecubital region. There is redness and swelling as well. GENITOURINARY: Deferred. RECTAL: Deferred. BREASTS: Deferred. LAB/IMAGING: White count of 17.3, hematocrit 45.4, platelets of 266. Comprehensive metabolic panel: Glucose 158, BUN of 12, creatinine 0.8, sodium 137, potassium 3.8, chloride 101, HCO3 of 26, calcium 9.0, total protein 7.7, albumin 3.6, total bilirubin 0.5, alkaline phosphatase 80, AST of 21, ALT of 34, procalcitonin of less than 0.5. Lactic acid 1.3. Urine drug screen is all negative. IMPRESSION: 1. This is a 41-year-old male who has a history of diabetes, obesity and attention deficit, who presents with cellulitis and possible abscess of his right upper extremity, related to recreational drug use PLAN: He is going to be admitted for IV antibiotics. Also, with possible abscess and swelling, I have asked general surgery to evaluate related to his location and the vessels there. I am thinking they may want to consider opening up this wound to allow for better drainage. We have cultures pending. The antibiotics to treat will include vancomycin, and he has been given clindamycin as well in the emergency department.
--- NOTE | 2016-11-08 13:45 | OPERATIVE REPORT ---
DATE OF SURGERY: 11/08/2016 SURGEON: Prasad England III, MD ADOPTION SOCIAL WORKER: None. PREOPERATIVE DIAGNOSIS: 1. Inadequately drained right upper extremity abscess POSTOPERATIVE DIAGNOSIS: 1. Inadequately drained right upper extremity abscess PROCEDURE PERFORMED: 1. Incision and drainage and curettage, debridement of necrotic subcutaneous fat abscess, right upper arm, and oversewing bleeding vessels ANESTHESIA: LMA, local, 1% Xylocaine with epinephrine, 0.5% Marcaine with epinephrine. INDICATIONS: The patient is a 41-year-old male with a single injection cocaine in antecubital region, resulting in swelling and pain. He was seen in the emergency department, where a small incision was made by the emergency department physician and had drainage of a small amount of purulent material. Treated with antibiotics and sent home. The swelling worsened. The pain intensified. The patient returned to the emergency department where he was noted to have a white count of 17,000, admitted to [facility] by Dr. Richter. [facility] were asked to evaluate the patient. SURGICAL FINDINGS: The patient had a 10 x 7 cm swelling in the lower portion of his biceps region, just above the antecubital region. It was quite tender to palpation, erythematous and fluctuant. The patient was noted to have an abscess deep in the subcutaneous tissue of his right upper extremity, with a cavity measuring approximately 6 x 2 x 3 cm, containing copious amounts of purulent material, foul-smelling. SURGICAL TECHNIQUE: The patient was brought to the operating room and placed in the dorsal supine position where he underwent LMA by Anesthesia. After anesthesia had taken effect, the patient's right upper extremity was prepped with Betadine and draped in a sterile fashion. The site of the previous incision and drainage site by the emergency department physician was identified. This site was infiltrated using local anesthetic. A small incision was made over the site, and then a hemostat was used to probe the area, where immediately the abscess cavity was entered, in the deep tissue. The incision was carried out laterally for about 5 cm and then medially for about a 1 centimeter and deep into the cavity, in the process, transecting one of the superficial antecubital veins. The wound was curetted out using a bone curette, removing all the devitalized subcutaneous tissue on down to muscles. The vessels, having been identified and clamped, were ligated using 3-0 Vicryl suture ligature. Hemostasis otherwise, we then used electrocautery. The wound was irrigated copiously with warm normal saline and packed using iodoform gauze. A sterile pressure occlusive dressing was placed over the patient's wound. The LMA was removed. He was transferred to the recovery room in stable condition. There were no intraoperative or anesthetic complications.
[2016-11-09 02:27] VITALS: BP 133/68
[2016-11-09 07:07] VITALS: BP 146/86
--- NOTE | 2016-11-09 09:26 | Provider's Discharge Care Plan ---
Problem, Goal, Plan Problem List 1. Cellulitis of right arm Instructions: - take complete course of antibioitics. - follow up in wound care clinic
--- NOTE | 2016-11-09 09:26 | Provider's Discharge Care Plan ---
Problem, Goal, Plan Problem List 1. Cellulitis of right arm Instructions: - take complete course of antibioitics. - follow up in wound care clinic
[2016-11-09] MEDS ORDERED: CLEOCIN300 MG PO (09:28)
--- NOTE | 2016-11-09 09:29 | Discharge Summary ---
Discharge Summary Report Admit Date 11/08/16 Discharge Date 11/09/16 Admission Diagnosis right arm cellulitis Discharge Diagnosis right arm cellulitis I&D of the abscess of the right arm Brief History The patient is a 41-year-old male who has generally been healthy. A few days ago he injected himself with cocaine in his right arm antecubital fossa, and has post had some swelling and pain. Seen in the emergency department , was incised and drained and also given antibiotics by mouth. He went home, had worse swelling and pain, and returned to the emergency department for further evaluation and treatment. In the ED, he was found to have increased swelling and redness in spite of his antibiotic use, and the decision was made for admission for IV antibiotics. Hospital Course Patient was admitted for cellulitis of the right arm. Patient had a resulting abscess secondary to the cellulitis, which was subsequently incised and drained. Patient tolerated the procedure well without any problems. Patient was treated with IV antibioitics and the wound itself looks clean and without signs of infection. Patient will be discharged on oral antibioitics for the next week. He will follow up in wound clinic for further monitoring. HEENT Atraumatic, PERRLA, EOMI, Mucous membran moist/pink Lungs Clear to auscultation, Normal air movement Cardiovascular Normal S1, Normal S2 Abdomen Soft, No tenderness Skin - right arm wound Psych/Mental Status Mood NL Discharge Instructions/Meds - take antibioitics as prescribed - follow up in wound clinic
[2016-11-09] MEDS ORDERED: [UNRECOGNIZED DRUG - OTHER] PO (09:34)
[2016-11-09] MEDS ORDERED: ACIDOPHILUS PO (09:34)
[2016-11-09 10:07] VITALS: BP 124/74
[2016-11-09] MEDS ORDERED: PERCOCET1 TA1 PO (10:20)
== END 2016-11-09 10:30 | disposition home or self-care (01) | DRG 571 ==
LOC: ED SRH 03:48 → TRANS SRH 05:34 → ACUTE2 SRH 05:34 → TRANS SRH 05:34 → ACUTE2 SRH 06:29
PROVIDERS: Specialist; ADMIT Family Medicine
PROC: 0JBG0ZZ Excision of Right Lower Arm Subcutaneous Tissue and Fascia, Open Approach (ICD-10-PCS; principal; 2016-11-08 10:00)
PROC: 05LY0ZZ Occlusion of Upper Vein, Open Approach (ICD-10-PCS; principal; 2016-11-08 10:00)
DX: L02.413 Cutaneous abscess of right upper limb (principal); L03.113 Cellulitis of right upper limb; S51.831A Puncture wound without foreign body of right forearm, initial encounter; W46.0XXA Contact with hypodermic needle, initial encounter; I97.52 Accidental puncture and laceration of a circulatory system organ or structure during other procedure; E66.9 Obesity, unspecified; Z68.41 Body mass index [BMI] 40.0-44.9, adult; E11.9 Type 2 diabetes mellitus without complications; F14.10 Cocaine abuse, uncomplicated; Y99.8 Other external cause status; F17.210 Nicotine dependence, cigarettes, uncomplicated; Z79.84 Long term (current) use of oral hypoglycemic drugs
CPT/HCPCS: 50002; 60001; 70002; 80575; 84038; 90004; 90065; 90074; 90100; 90131; 90309; 90470; 90627; 92031; 92760; 92761; 92762; 92763; 92764; 92765; 92766; 92767; 93004; 95059

== ENCOUNTER 2016-11-11 04:39 | Emergency (ER) | payer BC, OTHER ==
[~2016-11-11 04:39] MED LIST: ACIDOPHILUS PO; CLEOCIN300 MG PO; PERCOCET1 TA1 PO; [UNRECOGNIZED DRUG - OTHER] PO
--- NOTE | 2016-11-11 06:31 | DIAGNOSTIC IMAGING REPORT ---
PROCEDURE: CT HEAD WITHOUT CONTRAST INDICATION: Headache. Nausea and vomiting. TECHNIQUE: Noncontrast axial images with sagittal and coronal reformations. COMPARISON: None. FINDINGS: Brain and ventricles are normal. No evidence of an acute process or hemorrhage. Sinuses and mastoids are normal. IMPRESSION: 1. Negative head CT. 2. Findings discussed with Dr. Ivey at [address] scans at this facility use dose modulation, iterative reconstruction, and/or weight-based dosing when appropriate to reduce radiation dose to as low as reasonably achievable.
--- NOTE | 2016-11-11 07:05 | ED ORDER SUMMARY ---
..... Patient: BISHOP GLOVER OrderSheet [facility] VisitID: [id number] [place] [address] 41y, M Registration Date/Time: 11/11/2016 ORDER SHEET Weight: 153 kg Allergies: No Known Drug Allergy GENERAL ORDERS: CBC w Diff Urgent (05:18 11/11/2016 PHson DO) (5:18 TBowen R.N.) CMP Urgent (05:11/11/2016 PHson ) (5:18 TBowen R.N.) UA-Culture if indicated Urgent (05:11/11/2016 PH) (5:18 TBowen R.N.) Urine Drug Screen Urgent (05:11/11/2016) (5:18 TBowen R.N.) CT Head wo Cont (recent right AC area abscess with OR drainage, now TIERNEY, n/v) Urgent (05:18 11/11/2016) (Ack 5:20 AMcQuoid ER Tech1) (5:29 TBowen R.N.) MEDICATION ORDERS: Phenergan IV 12.5 mg (HIGH ALERT MEDICATION, NOW) (05:18 11/11/2016) (5:29 TBowen R.N.) Phenergan IV 12.5 mg (HIGH ALERT MEDICATION, NOW) (06:53 11/11/2016 PHson DO) (6:59 TBowen R.N.) IV FLUIDS: IV NS : initial bolus 1000 mL (1000 mL/hr), then 500 mL/hr for X2 (NOW) (05:17 11/11/2016 PH DO) (5:28 TBowen R.N.) Zofran IV 4 mg (NOW) (05:18 11/11/2016 PH DO) (5:28 TBowen R.N.) Dilaudid IV 1 mg (NOW) (06:53 11/11/2016 PH DO) (6:59 TBowen R.N.) ORDER SHEET NOTES: [Electronically signed by Crystal Campa R.N. (07:32 11/11/2016)] [Electronically signed by Keyshawn Ivey DO (08:03 11/11/2016)] [Electronically locked/signed by Crystal Campa R.N. (07:32 11/11/2016)]
--- NOTE | 2016-11-11 07:05 | ED NURSING NOTES ---
Clinical Report - Nurses [facility] [address] [place] [address] 11/11/2016 4:38 Patient: BISHOP GLOVER TRIAGE Triage time 04:48. Acuity: LEVEL 3. Chief Complaint: HEADACHE. Alert. --04:50 TonchandlerB, R.N. 04:46 11/11/16. BP: 159/93. HR: 92. RR: 18. O2 saturation: 97%. Temp: 97.8 F. Pain level now: 12/23. --04:50 TonyaB R.N. Weight: 153 kg. Height/Length: 75 inches. BMI: 42.2. --04:50 TonyaB, R.N. Medications MetFORMIN HCl Oral. --04:49 ReaB R.N. Allergies No Known Drug Allergy. --04:49 Julia R.N. History Arrived by private vehicle. Historian: patient. Accompanied by family. This started just prior to arrival. Patient was last known well (0200). ( pt states he woke up at around 0200 with terrbile headache, nausea and vomiting and sweating). He has had nausea. 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 (percocet). PAST MEDICAL HX: Immunizations: up-to-date. SOCIAL HX: Smoker- current status unknown. No alcohol use or drug use. No recent travel. No infectious disease exposure. No known contact with a sick individual. SELF HARM ASSESSMENT: A self harm assessment was performed. The patient answered "no" to the question "Have you recently felt down, depressed, or hopeless?", "Have you noticed less interest or pleasure in doing things?", "Do you have thoughts of harming or killing yourself?", "Are you here because you tried to hurt yourself?", "Have you ever tried to hurt yourself before today?", "Have you recently had thoughts about harming or killing others?" and "Do you have any dangerous items in your possession?". FALL RISK ASSESSMENT: Fall risk assessment completed. No fall risk identified. NUTRITIONAL RISK ASSESSMENT: The nutritional risk assessment revealed no deficiencies. FUNCTIONAL ASSESSMENT: Functional assessment: no impairments noted. LEARNING NEEDS ASSESSMENT: The learning needs assessment revealed no barriers. SKIN INTEGRITY ASSESSMENT: Skin integrity risk assessment completed. No skin integrity risk identified. --04:50 Levon Dumont. Interventions ID band on patient. To treatment room. --04:50 Varun Dumont PHYSICAL ASSESSMENT ( pt has annie wrap to right upper arm from cellulitis). GENERAL / NEURO / PSYCH: Alert. Oriented X 4. Appears anxious. Speech within normal limits. HEENT: No facial asymmetry noted. Pupils equal, round and reactive to light. RESPIRATORY: Respirations not labored. Breath sounds within normal limits. CVS: Capillary refill less than 2 seconds. GI / : The patient has had nausea. Emesis noted. Abdomen soft and nontender. SKIN: Skin is warm and dry. --04:51 Levon Dumont. NURSING PROGRESS NOTES Patient identifiers checked. Call light placed in reach. Side rails up. Bed placed in lowest position. Brakes of bed on. --04:51 Christine DumontN. Finger stick glucose: 147. --04:59 Christine DumontNJ Carlos 05:09 11/11/2016 Site #1 started via IV in the right hand with an 20g angiocath, with aseptic technique and good blood return; one attempt. Blood drawn: rainbow set. Labeled in the presence of the patient and sent to the lab. Saline lock flushed. --05:09 Varun Dumont ( UA sent to lab at this time with blood). --05:09 Christine DumontNJ Carlos ( ice pack given to pt, per pt request.). --05:20 Corinne Restrepo R.N. 05:23 11/11/2016 Started bag #1 1000 mL IV Fluids IV NS (Saline); at 1000 mL/hr over 1 hour(s) via site #1 via IV pump. Allergies verified and confirmed 5 rights. IV patency established. IV site checked: no pain, redness, or swelling. IV flushed thoroughly pre- and post-medication administration. --05:28 Varun Dumont 05:24 11/11/2016 PHENERGAN (Promethazine HCl) IVP 12.5 mg given over 5 minute(s) via site #1. Allergies verified and confirmed 5 rights. IV patency established. IV site checked: no pain, redness, or swelling. IV flushed thoroughly pre- and post-medication administration. IVP given by RN. --05:29 Varun Dumont 05:28 11/11/2016 Zofran (Ondansetron HCl) IVP 4 mg given over 2 minute(s) via site #1. Allergies verified and confirmed 5 rights. IV patency established. IV site checked: no pain, redness, or swelling. IV flushed thoroughly pre- and post-medication administration. IVP given by RN. --05:28 Levon Dumont. Patient transported to [place] by stretcher. --05:54 Varun Dumont 06:38 11/11/2016 IV Fluids IV NS Discontinued: bag #1 completed. Total amount infused: 1000 mL. IV patency established. IV site checked: no pain, redness, or swelling. IV flushed thoroughly. --06:38 Varun Dumont 06:39 11/11/2016 Started bag #2 1000 mL IV Fluids IV NS (Saline); at 500 mL/hr over 2 hour(s) via site #1 via IV pump. Allergies verified and confirmed 5 rights. IV patency established. IV site checked: no pain, redness, or swelling. IV flushed thoroughly pre- and post-medication administration. --06:39 Varun Dumont Reassessment after fluids administered and medication administered. He is resting quietly. Overall patient status- he states feels better. --06:39 Varun Dumont 06:59 11/11/2016 Dilaudid (HYDROmorphone HCl PF) IVP 1 mg given over 2 minute(s) via site #1. Allergies verified, confirmed 5 rights and sedative warning given to the patient. IV patency established. IV site checked: no pain, redness, or swelling. IV flushed thoroughly pre- and post-medication administration. IVP given by RN. --06:59 Varun Dumont 06:59 11/11/2016 PHENERGAN (Promethazine HCl) IVP 12.5 mg given over 5 minute(s) via site #1. Allergies verified and confirmed 5 rights. IV patency established. IV site checked: no pain, redness, or swelling. IV flushed thoroughly pre- and post-medication administration. IVP given by RN. --06:59 Varun Dumont 07:07 11/11/16. Care transferred and report received (from ATILIO Lucia). --07:07 Crystal Campa R.N. 07:15 11/11/2016 IV Fluids IV NS Discontinued: bag #3 discontinued upon discharge. Total amount infused: 200 mL. IV patency established. IV site checked: no pain, redness, or swelling. IV flushed thoroughly. --07:31 Crystal Campa R.N. DISPOSITION / DISCHARGE 07:27 11/11/16. BP: 155/86. HR: 84. RR: 16. O2 saturation: 95%. Temp: deferred. Pain level now: 12/23. --07:28 Crystal Campa R.N. 07:16 11/11/2016 Site #1 removed upon discharge. Manual pressure and bandaid applied. --07:31 Crystal Campa R.N. 07:28 11/11/16. No learning barriers present. Discharge instructions provided and reviewed with the patient and spouse. Reviewed warnings. Reviewed medication(s). Treatments reviewed. Activity restrictions reviewed. Work note given. Patient and spouse verbalized understanding. Written instructions provided in Bur[place]ian. The patient was discharged by the physician. He was discharged home and accompanied by spouse. He left the Emergency Department ambulatory and via private vehicle. Spouse driving. --07:28 Crystal Campa R.N. Locked/Released at 11/11/2016 7:32 by Crystal Campa R.N.
--- NOTE | 2016-11-11 07:05 | ED CLINICAL REPORT ---
Clinical Report - Physicians/Mid Levels [facility] [address] [place] [address] 11/11/2016 4:38 Patient: BISHOP GLOVER Time Seen: 05:06. Arrived- By private vehicle. Historian- patient and family. HISTORY OF PRESENT ILLNESS Is still present. Chief Complaint: HEADACHE. Vomiting. This started today about 3 hours ago. It was gradual in onset and has been waxing/waning. Onset during light activity. It is described as "pain". Has had neck pain and located in the occipital region. At its maximum, severity described as moderate. When seen in the E.D., severity described as moderate. Modifying factors: relieved by nothing. Not worsened by anything. The patient has had nausea and vomiting. The vomiting has occurred twice. No photophobia, numbness or weakness. Similar symptoms previously: Recent medical care: The patient was seen recently at this facility in the emergency department and hospitalized. REVIEW OF SYSTEMS No fever, sinus pressure, ear pain, sore throat or chest pain. No difficulty breathing, cough, abdominal pain, diarrhea or pain with urination. No skin rash, enlarged lymph nodes or back pain. All systems otherwise negative, except as recorded above. PAST HISTORY See nurses notes. PCP: Franki Denis PROBLEMS: Hypertension. Leukocytosis. Sick Contact. Pancreatitis. Abscess. Pulmonary Embolism. Diabetes Mellitus Substance abuse SURGERIES: Dental Surgery. Knee Surgery. Abscess I&D. Medications: MetFORMIN HCl Oral. Allergies: No Known Drug Allergy. SOCIAL HISTORY Smoker- current status unknown. Occasional alcohol use. History of drug use recent single use of cocaine by injecting into the right AC - about 1 week ago: cocaine. Residence: [place]. ADDITIONAL NOTES The nursing notes have been reviewed. PHYSICAL EXAM Vital Signs: 11/11/2016 04:46 BP: 159/93. HR: 92. RR: 18. O2 saturation: 97%. Temp: 97.8 F. Pain level now: 5/10. Appearance: Alert. Patient in mild distress. Head: No tenderness to palpation/percussion over the sinuses or temporal artery tenderness. Eyes: Pupils equal, round and reactive to light. Eyes normal inspection. No conjunctival findings or photophobia. ENT: Pharynx normal. No tonsillar exudate. Neck: Normal inspection. Neck supple. No meningeal signs. No neck stiffness or nuchal rigidity or carotid bruit. CVS: Normal heart rate and rhythm. Heart sounds normal. Pulses normal. Respiratory: No respiratory distress. Breath sounds normal. Abdomen: Soft and nontender. Back: Normal inspection. No CVA tenderness. Skin: No cyanosis. Skin warm and dry. No pallor. No petechiae. No diaphoresis. Extremities: No calf tenderness. Right elbow: mild erythema, tenderness and swelling and laceration. Neurovascular intact distally. (AC area with healing I&D site). No abrasion, puncture wound, foreign body or deformity. No limitation in ROM. No lower extremity edema. Neuro: Oriented X 3. Alert. Mood/affect normal. Speech normal. Cranial nerves normal (as tested). No cerebellar findings. No motor deficit. No sensory deficit. Reflexes normal. Reflex exam: right biceps 2+, left biceps 2+, right patellar 2+, left patellar 2+, right Achilles 2+ and left Achilles 2+. Normal gait. LABS, X-RAYS, AND EKG CT Head: Normal study. No acute changes. No bony abnormalities, no hemorrhage, no intracranial mass, no midline shift and no hydrocephalus. No atrophy. Head CT performed without contrast. The study was independently viewed by me, interpreted by the radiologist and discussed with the radiologist. Laboratory Tests: UA-Culture if indicated: (CRISTEL: 11/11/2016 05:00) ( MsgRcvd 11/11/2016 05:41) Final results Test Result Flag Units (Reference) URINE COLOR YELLOW URINE APPEARANCE CLEAR URINE GLUCOSE NEGATIVE (NEGATIVE) URINE BILIRUBIN NEGATIVE (NEGATIVE) URINE KETONE NEGATIVE (NEGATIVE) URINE SPECIFIC GRAVITY 1.025 (1.010-1.030) URINE PH 6.0 (5.0-8.0) URINE PROTEIN NEGATIVE (NEGATIVE) URINE UROBILINOGEN 0.2 EU/dL (0.2-1.0) URINE NITRITE NEGATIVE (NEGATIVE) URINE BLOOD NEGATIVE (NEGATIVE) URINE LEUK ESTERASE NEGATIVE (NEGATIVE) URINE RBC RARE rbc/hpf (0-1) URINE WBC RARE wbc/hpf (0-1) URINE EPITHELIAL CELLS NONE SEEN EPI/hpf (0-5) URINE BACTERIA NONE SEEN (NONE SEEN) URINE COMMENT CULT NOT INDICATED URINE CULTURES ARE SET-UP BASED ON THE FOLLOWING CRITERIA:POSITIVE NITRITEPOSITIVE LEUKOCYTE ESTERASEGREATER THAN 10 WHITE BLOOD CELLSMODERATE (2+) OR GREATER BACTERIA CBC w Diff: (CRISTEL: 11/11/2016 05:00) ( [facility]28) Final results Test Result Flag Units (Reference) WHITE BLOOD COUNT 11.5 # K/uL (4.5-11.5) RED BLOOD COUNT 4.78 M/uL (4.50-5.90) HEMOGLOBIN 14.5 gm/dL (13.5-17.5) HEMATOCRIT 42.6 % (41.0-53.0) MEAN CELL VOLUME 89 fL (80-100) MEAN CORPUSCULAR HGB 30 pg (26-34) MEAN CORPUSCULAR HGB CONC 34 g/dL (31-37) RED CELL DISTRIBUTION WIDTH 13.3 % (11.6-14.8) PLATELET COUNT 308 K/uL (150-400) NEUTROPHIL % 58.6 % (50-75) LYMPH % 31.4 % (25-40) MONO % 7.4 % (3-14) EOSINOPHIL % 1.9 % (0-4) BASOPHIL % 0.7 % (0-2) Urine Drug Screen: (CRISTEL: 11/11/2016 05:00) ( [facility] 11/11/2016 05:49) Final results Test Result Flag Units (Reference) AMPHETAMINE/METHAMPHETAMINE NEGATIVE (NEGATIVE) BARBITURATE NEGATIVE (NEGATIVE) BENZODIAZEPINE NEGATIVE (NEGATIVE) CANNABINOID NEGATIVE (NEGATIVE) COCAINE NEGATIVE (NEGATIVE) ECSTASY NEGATIVE (NEGATIVE) METHADONE NEGATIVE (NEGATIVE) OPIATE NEGATIVE (NEGATIVE) The urine drug screen is a qualitative screening test fordrug overdose and abuse. All screen results should beconsidered as presumptive.Drugs screened for are as follows:BenzodiazepinesCocaineAmphetamines/MetamphetaminesTHC (Tetrahydrocannabinol)OpiatesBarbituratesEcstasyMethadonePositive results are unconfirmed. For confirmation, notifythe lab for the specimen to be sent to the reference lab.All confirmations must be performed by a differentmethodology.The ingestion of natural herbal and plant productscontaining Ephedra/Ephedra metabolites can produce in urineone or more substances capable of cross reacting withamphetamine/methamphetamine immunoassays. These testsprovide a preliminary result only. A more specificalternative chemical method must be used to obtain aconfirmed analytical result. CMP: (CRISTEL: 11/11/2016 05:00) ( MsgRcvd 11/11/2016 05:39) Final results Test Result Flag Units (Reference) GLUCOSE 165 H mg/dL (70-110) BUN 14 mg/dL (7-18) CREATININE 0.7 mg/dL (0.6-1.3) Estimated GFR >60 mL/min Estimated GFR- >60 mL/min Note: Persistent reduction over 3 months in eGFR<60 mL/min/1.73 m2 defines CKD. Patients with eGFR values>=60 mL/min/1.73 m2 may also have CKD if evidence ofpersistent proteinuria. Additional information may be foundat www.kidney.org. SODIUM 140 mmol/L (136-145) POTASSIUM 4.0 mmol/L (3.5-5.1) CHLORIDE 103 mmol/L (98-107) CARBON DIOXIDE 29 mmol/L (21-32) CALCIUM 9.5 mg/dL (8.5-10.1) TOTAL PROTEIN 6.8 g/dL (6.4-8.2) ALBUMIN 3.1 L g/dL (3.3-5.0) BILIRUBIN, TOTAL 0.2 mg/dL (0.0-1.0) ALKALINE PHOSPHATASE 74 U/L (46-116) AST (SGOT) 19 U/L (15-37) ALT (SGPT) 34 U/L (12-78) . Pulse Oximetry: 11/11/2016 04:46 O2 saturation: 97%. (FIO2 - room air). Interpretation: normal. PROGRESS AND PROCEDURES Course of Care: Normal Saline liter IVPB given. Phenergan 12.5 mg + 12.5 mg IVP given. Zofran 4 mg IVP given. Dilaudid 1 mg IVP given. Patient is stable. Physical exam findings are improved. Symptoms much better. Pt refused LP after full discussion of risks and benefits. He assures me that he will f/u closely with his pcp and surgeon, and / or return to emergency or call 911 for any new or worsening symptoms or any concerns. Patient/family counseled. Old ED and inpatient records reviewed. Disposition: Discharged. Condition: stable and improved. CLINICAL IMPRESSION Acute tension and vascular headache. No episodic headache, chronic headache or treatment resistant headache. Chronic, moderately well controlled type 2 diabetes with hyperglycemia. No coma. Essential hypertension. Healing right upper extremity abscess. INSTRUCTIONS Do not work for three days. Drink plenty of fluids. Do not smoke. Seek medical help to quit smoking. No alcohol until better. (Your labs and CT scan are essentially normal now. You are aware that I cannot rule out meningitis without further testing - lumbar puncture / spinal tap, but you have declined this procedure). Warnings: Further evaluation is necessary in order to recheck abnormal lab, obtain test results, conduct further tests and assess the possibility of serious illness. It is very important to follow up with a physician. SEDATIVE MEDICATION: You were given sedative medication during your visit. Do not drive or operate dangerous machinery. CONTROLLED SUBSTANCE WARNINGS. GENERAL WARNINGS: Return or contact your physician immediately if your condition worsens or changes unexpectedly, if not improving as expected, or if other problems arise. Your Current Medications: CONTINUE TAKING THE FOLLOWING MEDICATIONS: MetFORMIN HCl Oral. Prescription Medications: Phenergan Tablets 25 mg: take 1 tablet orally as needed for nausea and vomiting. Dispense ten (10). No refill. Substitution is permissible Follow-up: Follow up with your doctor tomorrow. Screening today revealed the patient's blood pressure to be in the hypertensive range. The patient should follow up with a primary care provider for blood pressure management. Follow-up with: [facility], , , [facility], [address] [place] [address] [address], [place], [address] Follow up. Reason for referral: As per Dr England. Follow-up with: Kavon England MD, General Surgeon, , [facility], [address] [place] [address] [address], [place], [address] Follow up as scheduled. (Electronically signed by Keyshawn Ivey DO 11/11/2016 8:03)
--- NOTE | 2016-11-11 07:05 | ED ORDER SUMMARY ---
..... Patient: BISHOP GLOVER OrderSheet [facility] VisitID: [id number] [place] [address] 41y, M Registration Date/Time: 11/11/2016 ORDER SHEET Weight: 153 kg Allergies: No Known Drug Allergy GENERAL ORDERS: CBC w Diff Urgent (05:18 11/11/2016 PHson DO) (5:18 TBowen R.N.) CMP Urgent (05:11/11/2016 PHson ) (5:18 TBowen R.N.) UA-Culture if indicated Urgent (05:11/11/2016 PH) (5:18 TBowen R.N.) Urine Drug Screen Urgent (05:11/11/2016) (5:18 TBowen R.N.) CT Head wo Cont (recent right AC area abscess with OR drainage, now TIERNEY, n/v) Urgent (05:18 11/11/2016) (Ack 5:20 AMcQuoid ER Tech1) (5:29 TBowen R.N.) MEDICATION ORDERS: Phenergan IV 12.5 mg (HIGH ALERT MEDICATION, NOW) (05:18 11/11/2016) (5:29 TBowen R.N.) Phenergan IV 12.5 mg (HIGH ALERT MEDICATION, NOW) (06:53 11/11/2016 PHson DO) (6:59 TBowen R.N.) IV FLUIDS: IV NS : initial bolus 1000 mL (1000 mL/hr), then 500 mL/hr for X2 (NOW) (05:17 11/11/2016 PH DO) (5:28 TBowen R.N.) Zofran IV 4 mg (NOW) (05:18 11/11/2016 PH DO) (5:28 TBowen R.N.) Dilaudid IV 1 mg (NOW) (06:53 11/11/2016 PH DO) (6:59 TBowen R.N.) ORDER SHEET NOTES: [Electronically signed by Crystal Campa R.N. (07:32 11/11/2016)] [Electronically signed by Keyshawn Ivey DO (08:03 11/11/2016)] [Electronically locked/signed by Crystal Campa R.N. (07:32 11/11/2016)]
--- NOTE | 2016-11-11 07:05 | ED CLINICAL REPORT ---
Clinical Report - Physicians/Mid Levels [facility] [address] [place] [place] [address] 11/11/2016 4:38 Patient: BISHOP GLOVER Time Seen: 05:06. Arrived- By private vehicle. Historian- patient and family. HISTORY OF PRESENT ILLNESS Is still present. Chief Complaint: HEADACHE. Vomiting. This started today about 3 hours ago. It was gradual in onset and has been waxing/waning. Onset during light activity. It is described as "pain". Has had neck pain and located in the occipital region. At its maximum, severity described as moderate. When seen in the E.D., severity described as moderate. Modifying factors: relieved by nothing. Not worsened by anything. The patient has had nausea and vomiting. The vomiting has occurred twice. No photophobia, numbness or weakness. Similar symptoms previously: Recent medical care: The patient was seen recently at this facility in the emergency department and hospitalized. REVIEW OF SYSTEMS No fever, sinus pressure, ear pain, sore throat or chest pain. No difficulty breathing, cough, abdominal pain, diarrhea or pain with urination. No skin rash, enlarged lymph nodes or back pain. All systems otherwise negative, except as recorded above. PAST HISTORY See nurses notes. PCP: Franki Denis PROBLEMS: Hypertension. Leukocytosis. Sick Contact. Pancreatitis. Abscess. Pulmonary Embolism. Diabetes Mellitus Substance abuse SURGERIES: Dental Surgery. Knee Surgery. Abscess I&D. Medications: MetFORMIN HCl Oral. Allergies: No Known Drug Allergy. SOCIAL HISTORY Smoker- current status unknown. Occasional alcohol use. History of drug use recent single use of cocaine by injecting into the right AC - about 1 week ago: cocaine. Residence: [place]. ADDITIONAL NOTES The nursing notes have been reviewed. PHYSICAL EXAM Vital Signs: 11/11/2016 04:46 BP: 159/93. HR: 92. RR: 18. O2 saturation: 97%. Temp: 97.8 F. Pain level now: 5/10. Appearance: Alert. Patient in mild distress. Head: No tenderness to palpation/percussion over the sinuses or temporal artery tenderness. Eyes: Pupils equal, round and reactive to light. Eyes normal inspection. No conjunctival findings or photophobia. ENT: Pharynx normal. No tonsillar exudate. Neck: Normal inspection. Neck supple. No meningeal signs. No neck stiffness or nuchal rigidity or carotid bruit. CVS: Normal heart rate and rhythm. Heart sounds normal. Pulses normal. Respiratory: No respiratory distress. Breath sounds normal. Abdomen: Soft and nontender. Back: Normal inspection. No CVA tenderness. Skin: No cyanosis. Skin warm and dry. No pallor. No petechiae. No diaphoresis. Extremities: No calf tenderness. Right elbow: mild erythema, tenderness and swelling and laceration. Neurovascular intact distally. (AC area with healing I&D site). No abrasion, puncture wound, foreign body or deformity. No limitation in ROM. No lower extremity edema. Neuro: Oriented X 3. Alert. Mood/affect normal. Speech normal. Cranial nerves normal (as tested). No cerebellar findings. No motor deficit. No sensory deficit. Reflexes normal. Reflex exam: right biceps 2+, left biceps 2+, right patellar 2+, left patellar 2+, right Achilles 2+ and left Achilles 2+. Normal gait. LABS, X-RAYS, AND EKG CT Head: Normal study. No acute changes. No bony abnormalities, no hemorrhage, no intracranial mass, no midline shift and no hydrocephalus. No atrophy. Head CT performed without contrast. The study was independently viewed by me, interpreted by the radiologist and discussed with the radiologist. Laboratory Tests: UA-Culture if indicated: (CRISTEL: 11/11/2016 05:00) ( MsgRcvd 11/11/2016 05:41) Final results Test Result Flag Units (Reference) URINE COLOR YELLOW URINE APPEARANCE CLEAR URINE GLUCOSE NEGATIVE (NEGATIVE) URINE BILIRUBIN NEGATIVE (NEGATIVE) URINE KETONE NEGATIVE (NEGATIVE) URINE SPECIFIC GRAVITY 1.025 (1.010-1.030) URINE PH 6.0 (5.0-8.0) URINE PROTEIN NEGATIVE (NEGATIVE) URINE UROBILINOGEN 0.2 EU/dL (0.2-1.0) URINE NITRITE NEGATIVE (NEGATIVE) URINE BLOOD NEGATIVE (NEGATIVE) URINE LEUK ESTERASE NEGATIVE (NEGATIVE) URINE RBC RARE rbc/hpf (0-1) URINE WBC RARE wbc/hpf (0-1) URINE EPITHELIAL CELLS NONE SEEN EPI/hpf (0-5) URINE BACTERIA NONE SEEN (NONE SEEN) URINE COMMENT CULT NOT INDICATED URINE CULTURES ARE SET-UP BASED ON THE FOLLOWING CRITERIA:POSITIVE NITRITEPOSITIVE LEUKOCYTE ESTERASEGREATER THAN 10 WHITE BLOOD CELLSMODERATE (2+) OR GREATER BACTERIA CBC w Diff: (CRISTEL: 11/11/2016 05:00) ( [facility] [place]/11[place] 05:28) Final results Test Result Flag Units (Reference) WHITE BLOOD COUNT 11.5 # K/uL (4.5-11.5) RED BLOOD COUNT 4.78 M/uL (4.50-5.90) HEMOGLOBIN 14.5 gm/dL (13.5-17.5) HEMATOCRIT 42.6 % (41.0-53.0) MEAN CELL VOLUME 89 fL (80-100) MEAN CORPUSCULAR HGB 30 pg (26-34) MEAN CORPUSCULAR HGB CONC 34 g/dL (31-37) RED CELL DISTRIBUTION WIDTH 13.3 % (11.6-14.8) PLATELET COUNT 308 K/uL (150-400) NEUTROPHIL % 58.6 % (50-75) LYMPH % 31.4 % (25-40) MONO % 7.4 % (3-14) EOSINOPHIL % 1.9 % (0-4) BASOPHIL % 0.7 % (0-2) Urine Drug Screen: (CRISTEL: 11/11/2016 05:00) ( [facility] [place] 11/11/2016 05:49) Final results Test Result Flag Units (Reference) AMPHETAMINE/METHAMPHETAMINE NEGATIVE (NEGATIVE) BARBITURATE NEGATIVE (NEGATIVE) BENZODIAZEPINE NEGATIVE (NEGATIVE) CANNABINOID NEGATIVE (NEGATIVE) COCAINE NEGATIVE (NEGATIVE) ECSTASY NEGATIVE (NEGATIVE) METHADONE NEGATIVE (NEGATIVE) OPIATE NEGATIVE (NEGATIVE) The urine drug screen is a qualitative screening test fordrug overdose and abuse. All screen results should beconsidered as presumptive.Drugs screened for are as follows:BenzodiazepinesCocaineAmphetamines/MetamphetaminesTHC (Tetrahydrocannabinol)OpiatesBarbituratesEcstasyMethadonePositive results are unconfirmed. For confirmation, notifythe lab for the specimen to be sent to the reference lab.All confirmations must be performed by a differentmethodology.The ingestion of natural herbal and plant productscontaining Ephedra/Ephedra metabolites can produce in urineone or more substances capable of cross reacting withamphetamine/methamphetamine immunoassays. These testsprovide a preliminary result only. A more specificalternative chemical method must be used to obtain aconfirmed analytical result. CMP: (CRISTEL: 11/11/2016 05:00) ( MsgRcvd 11/11/2016 05:39) Final results Test Result Flag Units (Reference) GLUCOSE 165 H mg/dL (70-110) BUN 14 mg/dL (7-18) CREATININE 0.7 mg/dL (0.6-1.3) Estimated GFR >60 mL/min Estimated GFR- >60 mL/min Note: Persistent reduction over 3 months in eGFR<60 mL/min/1.73 m2 defines CKD. Patients with eGFR values>=60 mL/min/1.73 m2 may also have CKD if evidence ofpersistent proteinuria. Additional information may be foundat www.kidney.org. SODIUM 140 mmol/L (136-145) POTASSIUM 4.0 mmol/L (3.5-5.1) CHLORIDE 103 mmol/L (98-107) CARBON DIOXIDE 29 mmol/L (21-32) CALCIUM 9.5 mg/dL (8.5-10.1) TOTAL PROTEIN 6.8 g/dL (6.4-8.2) ALBUMIN 3.1 L g/dL (3.3-5.0) BILIRUBIN, TOTAL 0.2 mg/dL (0.0-1.0) ALKALINE PHOSPHATASE 74 U/L (46-116) AST (SGOT) 19 U/L (15-37) ALT (SGPT) 34 U/L (12-78) . Pulse Oximetry: 11/11/2016 04:46 O2 saturation: 97%. (FIO2 - room air). Interpretation: normal. PROGRESS AND PROCEDURES Course of Care: Normal Saline liter IVPB given. Phenergan 12.5 mg + 12.5 mg IVP given. Zofran 4 mg IVP given. Dilaudid 1 mg IVP given. Patient is stable. Physical exam findings are improved. Symptoms much better. Pt refused LP after full discussion of risks and benefits. He assures me that he will f/u closely with his pcp and surgeon, and / or return to emergency or call 911 for any new or worsening symptoms or any concerns. Patient/family counseled. Old ED and inpatient records reviewed. Disposition: Discharged. Condition: stable and improved. CLINICAL IMPRESSION Acute tension and vascular headache. No episodic headache, chronic headache or treatment resistant headache. Chronic, moderately well controlled type 2 diabetes with hyperglycemia. No coma. Essential hypertension. Healing right upper extremity abscess. INSTRUCTIONS Do not work for three days. Drink plenty of fluids. Do not smoke. Seek medical help to quit smoking. No alcohol until better. (Your labs and CT scan are essentially normal now. You are aware that I cannot rule out meningitis without further testing - lumbar puncture / spinal tap, but you have declined this procedure). Warnings: Further evaluation is necessary in order to recheck abnormal lab, obtain test results, conduct further tests and assess the possibility of serious illness. It is very important to follow up with a physician. SEDATIVE MEDICATION: You were given sedative medication during your visit. Do not drive or operate dangerous machinery. CONTROLLED SUBSTANCE WARNINGS. GENERAL WARNINGS: Return or contact your physician immediately if your condition worsens or changes unexpectedly, if not improving as expected, or if other problems arise. Your Current Medications: CONTINUE TAKING THE FOLLOWING MEDICATIONS: MetFORMIN HCl Oral. Prescription Medications: Phenergan Tablets 25 mg: take 1 tablet orally as needed for nausea and vomiting. Dispense ten (10). No refill. Substitution is permissible Follow-up: Follow up with your doctor tomorrow. Screening today revealed the patient's blood pressure to be in the hypertensive range. The patient should follow up with a primary care provider for blood pressure management. Follow-up with: [facility], , , [facility], [address] [place] [address] [address], [place], [id number] Follow up. Reason for referral: As per Dr England. Follow-up with: Kavon England MD, General Surgeon, , [facility], [address] [place] [address] [address], [place], [id number] Follow up as scheduled. (Electronically signed by Keyshawn Ivey DO 11/11/2016 8:03)
--- NOTE | 2016-11-11 08:03 | ED MED RECONCILIATION SUMMARY ---
Patient: BISHOP GLOVER Medication Reconciliation Report [facility] VisitID: [id number] [address] [place] [address] 41y, M Registration Date/Time: 11/11/2016 Weight: 153 kg Height/Length: 75 in. BMI: 42.2 ALLERGIES: No Known Drug Allergy The patient's Home Medications are listed below: CONTINUE TAKING THE FOLLOWING MEDICATIONS: MetFORMIN HCl Oral The source(s) of the original Home Medication information: Not obtained. The following Medications were given to the patient in the Emergency Department: IV NS IV Fluids bolus 0, then 1000 mL/hr, administered: 11/11/2016 5:23:00 AM Zofran [IVP] IVP 4 mg, administered: 11/11/2016 5:28:00 AM PHENERGAN [IVP] IVP 12.5 mg, administered: 11/11/2016 5:24:00 AM IV NS IV Fluids bolus 0, then 500 mL/hr, administered: 11/11/2016 6:39:00 AM Dilaudid [IVP] IVP 1 mg, administered: 11/11/2016 6:59:00 AM PHENERGAN [IVP] IVP 12.5 mg, administered: 11/11/2016 6:59:00 AM The following Medications were prescribed to the patient: Phenergan Tablets 25 mg: take 1 tablet orally as needed for nausea and vomiting. Dispense ten (10). No refill. Substitution is permissible -- Keyshawn Ivey DO
--- NOTE | 2016-11-11 08:03 | ED MED RECONCILIATION SUMMARY ---
Patient: BISHOP GLOVER Medication Reconciliation Report [facility] VisitID: [id number] [address] [place] [address] 41y, M Registration Date/Time: 11/11/2016 Weight: 153 kg Height/Length: 75 in. BMI: 42.2 ALLERGIES: No Known Drug Allergy The patient's Home Medications are listed below: CONTINUE TAKING THE FOLLOWING MEDICATIONS: MetFORMIN HCl Oral The source(s) of the original Home Medication information: Not obtained. The following Medications were given to the patient in the Emergency Department: IV NS IV Fluids bolus 0, then 1000 mL/hr, administered: 11/11/2016 5:23:00 AM Zofran [IVP] IVP 4 mg, administered: 11/11/2016 5:28:00 AM PHENERGAN [IVP] IVP 12.5 mg, administered: 11/11/2016 5:24:00 AM IV NS IV Fluids bolus 0, then 500 mL/hr, administered: 11/11/2016 6:39:00 AM Dilaudid [IVP] IVP 1 mg, administered: 11/11/2016 6:59:00 AM PHENERGAN [IVP] IVP 12.5 mg, administered: 11/11/2016 6:59:00 AM The following Medications were prescribed to the patient: Phenergan Tablets 25 mg: take 1 tablet orally as needed for nausea and vomiting. Dispense ten (10). No refill. Substitution is permissible -- Keyshawn Ivey DO
--- NOTE | 2016-11-11 08:03 | ED DISCHARGE INSTRUCTIONS ---
Patient: BISHOP GLOVER General Instructions [facility] VisitID: [id number] [place] [address] 41y, M Registration Date/Time: 11/11/2016 Acute tension and vascular headache. No episodic headache, chronic headache or treatment resistant headache. Chronic, moderately well controlled type 2 diabetes with hyperglycemia. No coma. Essential hypertension. Healing right upper extremity abscess. INSTRUCTIONS Do not work for three days. Drink plenty of fluids. Do not smoke. Seek medical help to quit smoking. No alcohol until better. (Your labs and CT scan are essentially normal now. You are aware that I cannot rule out meningitis without further testing - lumbar puncture / spinal tap, but you have declined this procedure). Warnings: Further evaluation is necessary in order to recheck abnormal lab, obtain test results, conduct further tests and assess the possibility of serious illness. It is very important to follow up with a physician. SEDATIVE MEDICATION: You were given sedative medication during your visit. Do not drive or operate dangerous machinery. CONTROLLED SUBSTANCE WARNINGS. GENERAL WARNINGS: Return or contact your physician immediately if your condition worsens or changes unexpectedly, if not improving as expected, or if other problems arise. Your Current Medications: CONTINUE TAKING THE FOLLOWING MEDICATIONS: MetFORMIN HCl Oral. Prescription Medications: Phenergan Tablets 25 mg: take 1 tablet orally as needed for nausea and vomiting. Dispense ten (10). No refill. Substitution is permissible Follow-up: Follow up with your doctor tomorrow. Screening today revealed the patient's blood pressure to be in the hypertensive range. The patient should follow up with a primary care provider for blood pressure management. Follow-up with: [facility], , , [facility], [address] [place] [address] [address], [place] [address] Follow up. Reason for referral: As per Dr England. Follow-up with: Kavon England MD, General Surgeon, , [facility], [address] [place] [address] [address], [place] [address] Follow up as scheduled. ADDITIONAL INFORMATION Headache [Unspecified] The cause of your headache today is not clear, but it does not appear to be the sign of any serious illness. Under stress, some people tense the muscles of their shoulder, neck and scalp without knowing it. If this condition lasts long enough, a TENSION HEADACHE can occur. A MIGRAINE HEADACHE is caused by changes in blood flow to the brain. A migraine attack may be triggered by emotional stress, hormone changes during the menstrual cycle, oral contraceptives, alcohol use, certain foods containing tyramine, eye strain, weather changes, missing meals, lack of sleep or oversleeping. Other causes of headache include a viral illness with high fever, head injury with concussion, sinus, ear or throat infection, dental pain and TMJ (jaw joint) pain. More serious but less common causes of headache include stroke, brain hemorrhage, brain tumor, meningitis and encephalitis. Home Care: If you were given pain medicine for this headache, do not drive yourself home. Arrange for a ride, instead. When you get home, try to sleep. You should feel much better when you wake up. Apply heat to the back of your neck to relieve neck muscle spasm. Migraine headaches may respond best to an ice pack on the forehead or at the base of the skull. If you are having nausea or vomiting, follow a light diet until your headache is relieved. If you have a migraine type headache, use sunglasses when in the daylight or around bright indoor lighting until symptoms improve. Bright glaring light can worsen this kind of headache. Follow Up with your doctor if the headache is not better within the next 24 hours. If you have frequent headaches you should discuss a treatment plan with your primary care doctor. By being aware of the earliest signs of headache, and starting treatment right away, you may be able to stop the pain yourself. Get Prompt Medical Attention if any of the following occur: Worsening of your head pain or no improvement within 24 hours Repeated vomiting (unable to keep liquids down) Fever of 100.4F (38C) or higher, or as directed by your healthcare provider Stiff neck Extreme drowsiness, confusion or fainting Dizziness, vertigo (dizziness with spinning sensation) Weakness of an arm or leg or one side of the face Difficulty with speech or vision High Blood Pressure -- To Be Confirmed [No Tx] Your blood pressure was higher today than normal. Sometimes anxiety or pain can cause a temporary rise in blood pressure that later returns to normal. If your blood pressure is high on one measurement, this does not mean that you have hypertension (a chronic illness). However, you must have your blood pressure measured again within the next few days to find out if its still high. A normal blood pressure is 120/80 or less. The first (top) number is the "systolic" pressure. The second (bottom) number is the "diastolic" pressure. Hypertension exists when either the top number is 140 or higher, OR the bottom number is 90 or higher on repeated measurements. Blood pressure in the range of 120-140 (systolic) or 80-89 (diastolic) is considered "pre-hypertension". This means your are at risk for getting hypertension. You should have regular blood pressure checks to be sure your blood pressure is not rising. Home Care: Measure your blood pressure on 3 different days and write down the results. This can be done at your doctor's office or this facility. Some pharmacies and grocery stores offer automated blood pressure machines for your use. Follow Up: If your blood pressure is "high" (over 120/80) on 2 out of 3 days, you will need to follow up with your doctor for further evaluation and treatment. DO NOT PUT THIS OFF! Untreated high blood pressure increases the risk for heart attack, also known as acute myocardial infarction, or AMI, and stroke. It is a treatable condition. Get Prompt Medical Attention if any of the following occur: Chest pain or shortness of breath Severe headache Throbbing or rushing sound in the ears Nosebleed Sudden severe abdominal pain Extreme drowsiness, confusion or fainting Dizziness or vertigo (dizziness with spinning sensation) Weakness of an arm or leg or one side of the face Difficulty with speech or vision How To Quit Smoking Smoking is one of the hardest habits to break. About half of all those who have ever smoked have been able to quit, and most of those (about 70%) who still smoke want to quit. Here are some of the best ways to stop smoking. Keep Trying: It takes most smokers about 8 tries before they are finally able to fully quit. So, the more often you try and fail, the better your chance of quitting the next time! So, don't give up! Go Cold [place]: Most ex-smokers quit cold turkey. Trying to cut back gradually doesn't seem to work as well, perhaps because it continues the smoking habit. Also, it is possible to fool yourself by inhaling more while smoking fewer cigarettes. This results in the same amount of nicotine in your body! Get Support: Support programs can make an important difference, especially for the heavy smoker. These groups offer lectures, methods to change your behavior and peer support. Call the free national Quitline for more information. 234-NHHW-UCV (663-675-5498). Low-cost or free programs are offered by many hospitals, local chapters of the [place] [employer] (569-530-4517) and the [place] [employer] (260-569-3657). Support at home is important too. Non-smokers can help by offering praise and encouragement. If the smoker fails to quit, encourage them to try again! [place] Medicines: For those who can't quit on their own, Nicotine Replacement Therapy (NRT) may make quitting much easier. Certain aids such as the nicotine patch, gum and lozenge are available without a prescription. However, it is best to use these under the guidance of your doctor. The skin patch provides a steady supply of nicotine to the body. Nicotine gum and lozenge gives temporary bursts of low levels of nicotine. Both methods take the edge off the craving for cigarettes. WARNING: If you feel symptoms of nicotine overdose, such as nausea, vomiting, dizziness, weakness, or fast heartbeat, stop using these and see your doctor. Prescription Medicines: After evaluating your smoking patterns and prior attempts at quitting, your doctor may offer a prescription medicine such as bupropion (Zyban, Wellbutrin), varenicline (Chantix, Champix), a niocotine inhaler or nasal spray. Each has its unique advantage and side effects which your doctor can review with you. Health Benefits Of Quitting: The benefits of quitting start right away and keep improving the longer you go without smokin minutes: blood pressure and pulse return to normal 8 hours: oxygen levels return to normal 2 days: ability to smell and taste begins to improve as damaged nerves start to regrow 2-3 weeks: circulation and lung function improves 1-9 months: decreased cough, congestion and shortness of breath; less tired 1 year: risk of heart attack decreases by half 5 years: risk of lung cancer decreases by half; risk of stroke becomes the same as a non-smoker For information about how to quit smoking, visit the following links: National Cancer [place] , Clearing the Air, Quit Smoking Today - an online booklet. http://www.smokefree.gov/pubs/clearing_the_air.pdf Smokefree.gov http://smokefree.gov/ QuitNet http://www.quitnet.com/ Promethazine Hydrochloride Oral tablet What is this medicine? PROMETHAZINE (proe METH a zeen) is an antihistamine. It is used to treat allergic reactions and to treat or prevent nausea and vomiting from illness or motion sickness. It is also used to make you sleep before surgery, and to help treat pain or nausea after surgery. How should I use this medicine? Take this medicine by mouth with a glass of water. Follow the directions on the prescription label. Take your doses at regular intervals. Do not take your medicine more often than directed. Talk to your manager power regarding the use of this medicine in children. Special care may be needed. This medicine should not be given to infants and children younger than 2 years old. What side effects may I notice from receiving this medicine? Side effects that you should report to your doctor or health wild animal caretaker as soon as possible: blurred vision irregular heartbeat, palpitations or chest pain muscle or facial twitches pain or difficulty passing urine seizures skin rash slowed or shallow breathing unusual bleeding or bruising yellowing of the eyes or skin Side effects that usually do not require medical attention (report to your doctor or health wild animal caretaker if they continue or are bothersome): headache nightmares, agitation, nervousness, excitability, not able to sleep (these are more likely in children) stuffy nose What may interact with this medicine? Do not take this medicine with any of the following medications: medicines called MAO Inhibitors like Nardil, Parnate, Marplan, Eldepryl other phenothiazines like trimethobenzamide This medicine may also interact with the following medications: barbiturates like phenobarbital bromocriptine certain antidepressants certain antihistamines used in allergy or cold medicines epinephrine levodopa medicines for sleep medicines for mental problems and psychotic disturbances medicines for movement abnormalities as in Parkinson's disease, or for gastrointestinal problems muscle relaxants prescription pain medicines What if I miss a dose? If you miss a dose, take it as soon as you can. If it is almost time for your next dose, take only that dose. Do not take double or extra doses. Where should I keep my medicine? Keep out of the reach of children. Store at room temperature, between 20 and 25 degrees C (68 and 77 degrees F). Protect from light. Throw away any unused medicine after the expiration date. What should I tell my health care provider before I take this medicine? They need to know if you have any of these conditions: glaucoma high blood pressure or heart disease kidney disease liver disease lung or breathing disease, like asthma prostate trouble pain or difficulty passing urine seizures an unusual or allergic reaction to promethazine or phenothiazines, other medicines, foods, dyes, or preservatives or trying to get breast-feeding What should I watch for while using this medicine? Tell your doctor or health wild animal caretaker if your symptoms do not start to get better in 1 to 2 days. You may get drowsy or dizzy. Do not drive, use machinery, or do anything that needs mental alertness until you know how this medicine affects you. To reduce the risk of dizzy or fainting spells, do not stand or sit up quickly, especially if you are an older patient. Alcohol may increase dizziness and drowsiness. Avoid alcoholic drinks. Your mouth may get dry. Chewing sugarless gum or sucking hard candy, and drinking plenty of water may help. Contact your doctor if the problem does not go away or is severe. This medicine may cause dry eyes and blurred vision. If you wear contact lenses you may feel some discomfort. Lubricating drops may help. See your eye doctor if the problem does not go away or is severe. This medicine can make you more sensitive to the sun. Keep out of the sun. If you cannot avoid being in the sun, wear protective clothing and use sunscreen. Do not use sun lamps or tanning beds/booths. If you are diabetic, check your blood-sugar levels regularly. You have been given the following additional information: Headache, Unspecified Hypertension, To Be Confirmed Smoking Cessation Promethazine Hydrochloride Oral tablet Do not work for three days. (Electronically signed by Keyshawn Ivey DO 11/11/2016 8:03)
--- NOTE | 2016-11-11 08:03 | ED MAR SUMMARY ---
..... Medication Administration Record [facility] [address] [place] [address] Patient: BISHOP GLOVER Visit ID: [id number] 41y, M Weight: 153.0 kg Height/Length: 75 in BMI: 42.2 ALLERGIES: No Known Drug Allergy Start 05:23 11/11/2016 Julia RJ CarlosN., Stop 06:38 11/11/2016 Varun Dumont Medication Administered: IV NS (SALINE), Dose: IV Fluids over 1 hour(s), Rate: 1000 mL/hr, Dispensed: 1000 mL bag, Site: #1 right hand. Medication Ordered: IV NS : initial bolus 1000 mL (1000 mL/hr), then 500 mL/hr for X2 (NOW). Given 05:24 11/11/2016 Christine DumontN. Medication Administered: PHENERGAN [IVP] (PROMETHAZINE HCL), Dose: 12.5 mg IVP over 5 minute(s), Site: #1 right hand. Medication Ordered: Phenergan IV 12.5 mg (HIGH ALERT MEDICATION, NOW). Given 05:28 11/11/2016 Christine DumontN. Medication Administered: ZOFRAN [IVP] (ONDANSETRON HCL), Dose: 4 mg IVP over 2 minute(s), Site: #1 right hand. Medication Ordered: Zofran IV 4 mg (NOW). Start 06:39 11/11/2016 Levon Dumont., Stop 07:15 11/11/2016 Crystal Campa R.N. Medication Administered: IV NS (SALINE), Dose: IV Fluids over 2 hour(s), Rate: 500 mL/hr, Dispensed: 1000 mL bag, Site: #1 right hand. Medication Ordered: IV NS : initial bolus 1000 mL (1000 mL/hr), then 500 mL/hr for X2 (NOW). Given 06:59 11/11/2016 Levon Dumont. Medication Administered: DILAUDID [IVP] (HYDROMORPHONE HCL PF), Dose: 1 mg IVP over 2 minute(s), Site: #1 right hand. Medication Ordered: Dilaudid IV 1 mg (NOW). Given 06:59 11/11/2016 Varun Dumont Medication Administered: PHENERGAN [IVP] (PROMETHAZINE HCL), Dose: 12.5 mg IVP over 5 minute(s), Site: #1 right hand. Medication Ordered: Phenergan IV 12.5 mg (HIGH ALERT MEDICATION, NOW).
--- NOTE | 2016-11-11 08:03 | ED MAR SUMMARY ---
..... Medication Administration Record [facility] [address] [place] [address] Patient: BISHOP GLOVER Visit ID: [id number] 41y, M Weight: 153.0 kg Height/Length: 75 in BMI: 42.2 ALLERGIES: No Known Drug Allergy Start 05:23 11/11/2016 Julia RJ CarlosN., Stop 06:38 11/11/2016 Varun Dumont Medication Administered: IV NS (SALINE), Dose: IV Fluids over 1 hour(s), Rate: 1000 mL/hr, Dispensed: 1000 mL bag, Site: #1 right hand. Medication Ordered: IV NS : initial bolus 1000 mL (1000 mL/hr), then 500 mL/hr for X2 (NOW). Given 05:24 11/11/2016 Christine DumontN. Medication Administered: PHENERGAN [IVP] (PROMETHAZINE HCL), Dose: 12.5 mg IVP over 5 minute(s), Site: #1 right hand. Medication Ordered: Phenergan IV 12.5 mg (HIGH ALERT MEDICATION, NOW). Given 05:28 11/11/2016 Christine DumontN. Medication Administered: ZOFRAN [IVP] (ONDANSETRON HCL), Dose: 4 mg IVP over 2 minute(s), Site: #1 right hand. Medication Ordered: Zofran IV 4 mg (NOW). Start 06:39 11/11/2016 Levon Dumont., Stop 07:15 11/11/2016 Crystal Campa R.N. Medication Administered: IV NS (SALINE), Dose: IV Fluids over 2 hour(s), Rate: 500 mL/hr, Dispensed: 1000 mL bag, Site: #1 right hand. Medication Ordered: IV NS : initial bolus 1000 mL (1000 mL/hr), then 500 mL/hr for X2 (NOW). Given 06:59 11/11/2016 Levon Dumont. Medication Administered: DILAUDID [IVP] (HYDROMORPHONE HCL PF), Dose: 1 mg IVP over 2 minute(s), Site: #1 right hand. Medication Ordered: Dilaudid IV 1 mg (NOW). Given 06:59 11/11/2016 Varun Dumont Medication Administered: PHENERGAN [IVP] (PROMETHAZINE HCL), Dose: 12.5 mg IVP over 5 minute(s), Site: #1 right hand. Medication Ordered: Phenergan IV 12.5 mg (HIGH ALERT MEDICATION, NOW).
--- NOTE | 2016-11-11 08:03 | ED DISCHARGE INSTRUCTIONS ---
Patient: BISHOP GLOVER General Instructions [facility] VisitID: [id number] [place] [address] 41y, M Registration Date/Time: 11/11/2016 Acute tension and vascular headache. No episodic headache, chronic headache or treatment resistant headache. Chronic, moderately well controlled type 2 diabetes with hyperglycemia. No coma. Essential hypertension. Healing right upper extremity abscess. INSTRUCTIONS Do not work for three days. Drink plenty of fluids. Do not smoke. Seek medical help to quit smoking. No alcohol until better. (Your labs and CT scan are essentially normal now. You are aware that I cannot rule out meningitis without further testing - lumbar puncture / spinal tap, but you have declined this procedure). Warnings: Further evaluation is necessary in order to recheck abnormal lab, obtain test results, conduct further tests and assess the possibility of serious illness. It is very important to follow up with a physician. SEDATIVE MEDICATION: You were given sedative medication during your visit. Do not drive or operate dangerous machinery. CONTROLLED SUBSTANCE WARNINGS. GENERAL WARNINGS: Return or contact your physician immediately if your condition worsens or changes unexpectedly, if not improving as expected, or if other problems arise. Your Current Medications: CONTINUE TAKING THE FOLLOWING MEDICATIONS: MetFORMIN HCl Oral. Prescription Medications: Phenergan Tablets 25 mg: take 1 tablet orally as needed for nausea and vomiting. Dispense ten (10). No refill. Substitution is permissible Follow-up: Follow up with your doctor tomorrow. Screening today revealed the patient's blood pressure to be in the hypertensive range. The patient should follow up with a primary care provider for blood pressure management. Follow-up with: [facility], , , [facility], [address] [place] [address] [address], [place] [address] Follow up. Reason for referral: As per Dr England. Follow-up with: Kavon England MD, General Surgeon, , [facility], [address] [place] [address] [address], [place] [address] Follow up as scheduled. ADDITIONAL INFORMATION Headache [Unspecified] The cause of your headache today is not clear, but it does not appear to be the sign of any serious illness. Under stress, some people tense the muscles of their shoulder, neck and scalp without knowing it. If this condition lasts long enough, a TENSION HEADACHE can occur. A MIGRAINE HEADACHE is caused by changes in blood flow to the brain. A migraine attack may be triggered by emotional stress, hormone changes during the menstrual cycle, oral contraceptives, alcohol use, certain foods containing tyramine, eye strain, weather changes, missing meals, lack of sleep or oversleeping. Other causes of headache include a viral illness with high fever, head injury with concussion, sinus, ear or throat infection, dental pain and TMJ (jaw joint) pain. More serious but less common causes of headache include stroke, brain hemorrhage, brain tumor, meningitis and encephalitis. Home Care: If you were given pain medicine for this headache, do not drive yourself home. Arrange for a ride, instead. When you get home, try to sleep. You should feel much better when you wake up. Apply heat to the back of your neck to relieve neck muscle spasm. Migraine headaches may respond best to an ice pack on the forehead or at the base of the skull. If you are having nausea or vomiting, follow a light diet until your headache is relieved. If you have a migraine type headache, use sunglasses when in the daylight or around bright indoor lighting until symptoms improve. Bright glaring light can worsen this kind of headache. Follow Up with your doctor if the headache is not better within the next 24 hours. If you have frequent headaches you should discuss a treatment plan with your primary care doctor. By being aware of the earliest signs of headache, and starting treatment right away, you may be able to stop the pain yourself. Get Prompt Medical Attention if any of the following occur: Worsening of your head pain or no improvement within 24 hours Repeated vomiting (unable to keep liquids down) Fever of 100.4F (38C) or higher, or as directed by your healthcare provider Stiff neck Extreme drowsiness, confusion or fainting Dizziness, vertigo (dizziness with spinning sensation) Weakness of an arm or leg or one side of the face Difficulty with speech or vision High Blood Pressure -- To Be Confirmed [No Tx] Your blood pressure was higher today than normal. Sometimes anxiety or pain can cause a temporary rise in blood pressure that later returns to normal. If your blood pressure is high on one measurement, this does not mean that you have hypertension (a chronic illness). However, you must have your blood pressure measured again within the next few days to find out if its still high. A normal blood pressure is 120/80 or less. The first (top) number is the "systolic" pressure. The second (bottom) number is the "diastolic" pressure. Hypertension exists when either the top number is 140 or higher, OR the bottom number is 90 or higher on repeated measurements. Blood pressure in the range of 120-140 (systolic) or 80-89 (diastolic) is considered "pre-hypertension". This means your are at risk for getting hypertension. You should have regular blood pressure checks to be sure your blood pressure is not rising. Home Care: Measure your blood pressure on 3 different days and write down the results. This can be done at your doctor's office or this facility. Some pharmacies and grocery stores offer automated blood pressure machines for your use. Follow Up: If your blood pressure is "high" (over 120/80) on 2 out of 3 days, you will need to follow up with your doctor for further evaluation and treatment. DO NOT PUT THIS OFF! Untreated high blood pressure increases the risk for heart attack, also known as acute myocardial infarction, or AMI, and stroke. It is a treatable condition. Get Prompt Medical Attention if any of the following occur: Chest pain or shortness of breath Severe headache Throbbing or rushing sound in the ears Nosebleed Sudden severe abdominal pain Extreme drowsiness, confusion or fainting Dizziness or vertigo (dizziness with spinning sensation) Weakness of an arm or leg or one side of the face Difficulty with speech or vision How To Quit Smoking Smoking is one of the hardest habits to break. About half of all those who have ever smoked have been able to quit, and most of those (about 70%) who still smoke want to quit. Here are some of the best ways to stop smoking. Keep Trying: It takes most smokers about 8 tries before they are finally able to fully quit. So, the more often you try and fail, the better your chance of quitting the next time! So, don't give up! Go Cold [place]: Most ex-smokers quit cold turkey. Trying to cut back gradually doesn't seem to work as well, perhaps because it continues the smoking habit. Also, it is possible to fool yourself by inhaling more while smoking fewer cigarettes. This results in the same amount of nicotine in your body! Get Support: Support programs can make an important difference, especially for the heavy smoker. These groups offer lectures, methods to change your behavior and peer support. Call the free national Quitline for more information. 883-OCTK-KGC (288-298-9023). Low-cost or free programs are offered by many hospitals, local chapters of the [employer] (890-892-1582) and the [employer] (293-158-9680). Support at home is important too. Non-smokers can help by offering praise and encouragement. If the smoker fails to quit, encourage them to try again! Abwp-Uac-Nwsatqx Medicines: For those who can't quit on their own, Nicotine Replacement Therapy (NRT) may make quitting much easier. Certain aids such as the nicotine patch, gum and lozenge are available without a prescription. However, it is best to use these under the guidance of your doctor. The skin patch provides a steady supply of nicotine to the body. Nicotine gum and lozenge gives temporary bursts of low levels of nicotine. Both methods take the edge off the craving for cigarettes. WARNING: If you feel symptoms of nicotine overdose, such as nausea, vomiting, dizziness, weakness, or fast heartbeat, stop using these and see your doctor. Prescription Medicines: After evaluating your smoking patterns and prior attempts at quitting, your doctor may offer a prescription medicine such as bupropion (Zyban, Wellbutrin), varenicline (Chantix, Champix), a niocotine inhaler or nasal spray. Each has its unique advantage and side effects which your doctor can review with you. Health Benefits Of Quitting: The benefits of quitting start right away and keep improving the longer you go without smokin minutes: blood pressure and pulse return to normal 8 hours: oxygen levels return to normal 2 days: ability to smell and taste begins to improve as damaged nerves start to regrow 2-3 weeks: circulation and lung function improves 1-9 months: decreased cough, congestion and shortness of breath; less tired 1 year: risk of heart attack decreases by half 5 years: risk of lung cancer decreases by half; risk of stroke becomes the same as a non-smoker For information about how to quit smoking, visit the following links: National Cancer [place] , Clearing the Air, Quit Smoking Today - an online booklet. http://www.smokefree.gov/pubs/clearing_the_air.pdf Smokefree.gov http://smokefree.gov/ QuitNet http://www.quitnet.com/ Promethazine Hydrochloride Oral tablet What is this medicine? PROMETHAZINE (proe METH a zeen) is an antihistamine. It is used to treat allergic reactions and to treat or prevent nausea and vomiting from illness or motion sickness. It is also used to make you sleep before surgery, and to help treat pain or nausea after surgery. How should I use this medicine? Take this medicine by mouth with a glass of water. Follow the directions on the prescription label. Take your doses at regular intervals. Do not take your medicine more often than directed. Talk to your curtain inspector regarding the use of this medicine in children. Special care may be needed. This medicine should not be given to infants and children younger than 2 years old. What side effects may I notice from receiving this medicine? Side effects that you should report to your doctor or health respiratory care assistant as soon as possible: blurred vision irregular heartbeat, palpitations or chest pain muscle or facial twitches pain or difficulty passing urine seizures skin rash slowed or shallow breathing unusual bleeding or bruising yellowing of the eyes or skin Side effects that usually do not require medical attention (report to your doctor or health respiratory care assistant if they continue or are bothersome): headache nightmares, agitation, nervousness, excitability, not able to sleep (these are more likely in children) stuffy nose What may interact with this medicine? Do not take this medicine with any of the following medications: medicines called MAO Inhibitors like Nardil, Parnate, Marplan, Eldepryl other phenothiazines like trimethobenzamide This medicine may also interact with the following medications: barbiturates like phenobarbital bromocriptine certain antidepressants certain antihistamines used in allergy or cold medicines epinephrine levodopa medicines for sleep medicines for mental problems and psychotic disturbances medicines for movement abnormalities as in Parkinson's disease, or for gastrointestinal problems muscle relaxants prescription pain medicines What if I miss a dose? If you miss a dose, take it as soon as you can. If it is almost time for your next dose, take only that dose. Do not take double or extra doses. Where should I keep my medicine? Keep out of the reach of children. Store at room temperature, between 20 and 25 degrees C (68 and 77 degrees F). Protect from light. Throw away any unused medicine after the expiration date. What should I tell my health care provider before I take this medicine? They need to know if you have any of these conditions: glaucoma high blood pressure or heart disease kidney disease liver disease lung or breathing disease, like asthma prostate trouble pain or difficulty passing urine seizures an unusual or allergic reaction to promethazine or phenothiazines, other medicines, foods, dyes, or preservatives or trying to get breast-feeding What should I watch for while using this medicine? Tell your doctor or health respiratory care assistant if your symptoms do not start to get better in 1 to 2 days. You may get drowsy or dizzy. Do not drive, use machinery, or do anything that needs mental alertness until you know how this medicine affects you. To reduce the risk of dizzy or fainting spells, do not stand or sit up quickly, especially if you are an older patient. Alcohol may increase dizziness and drowsiness. Avoid alcoholic drinks. Your mouth may get dry. Chewing sugarless gum or sucking hard candy, and drinking plenty of water may help. Contact your doctor if the problem does not go away or is severe. This medicine may cause dry eyes and blurred vision. If you wear contact lenses you may feel some discomfort. Lubricating drops may help. See your eye doctor if the problem does not go away or is severe. This medicine can make you more sensitive to the sun. Keep out of the sun. If you cannot avoid being in the sun, wear protective clothing and use sunscreen. Do not use sun lamps or tanning beds/booths. If you are diabetic, check your blood-sugar levels regularly. You have been given the following additional information: Headache, Unspecified Hypertension, To Be Confirmed Smoking Cessation Promethazine Hydrochloride Oral tablet Do not work for three days. (Electronically signed by Keyshawn Ivey DO 11/11/2016 8:03)
== END 2016-11-11 07:20 | disposition home or self-care (01) ==
LOC: ED SRH 04:39
DX: G44.209 Tension-type headache, unspecified, not intractable (principal); G44.1 Vascular headache, not elsewhere classified; I10 Essential (primary) hypertension; E11.65 Type 2 diabetes mellitus with hyperglycemia; L02.413 Cutaneous abscess of right upper limb; Z79.84 Long term (current) use of oral hypoglycemic drugs
CPT/HCPCS: 90004; 90100; 92760; 92761; 92762; 92763; 92764; 92765; 92766; 92767; 95059

== ENCOUNTER 2017-02-15 15:59 | Emergency (ER) | payer BC, OTHER ==
--- NOTE | 2017-02-15 18:32 | ED CLINICAL REPORT ---
Clinical Report - Physicians/Mid Levels [facility] [address] [place] [address] 02/15/2017 15:58 Patient: BISHOP GLOVER Time Seen: 1656; initial patient contact. Arrived- By private vehicle. Historian- patient. HISTORY OF PRESENT ILLNESS Chief Complaint: ABDOMINAL PAIN. At its maximum, severity described as moderate. When seen in the E.D., severity described as moderate. No radiation. It is described as located in the left lower quadrant. This started yesterday and is still present and worsening. It was abrupt in onset and has been constant but is not gone now. The patient has had nausea and vomiting. No loss of appetite or diarrhea. No additional abdominal pain. No recent travel. Similar symptoms previously: None. Recent medical care: The patient was seen recently in the emergency department (Seen at [facility], [place] and diagnosed with diverticulitis.). REVIEW OF SYSTEMS All systems otherwise negative, except as recorded above. PAST HISTORY See nurses notes. Medications: Vivanz. Probiotic. Ciprofloxacin 500 mg. Flagyl 500 mg. Sidney 7.5 mg. Allergies: Keflex. SOCIAL HISTORY Smoker- current status unknown. Occasional alcohol use. No drug use. No recent travel. Is a local resident. ADDITIONAL NOTES The nursing notes have been reviewed. PHYSICAL EXAM Vital Signs: 02/15/2017 16:14 BP: 159/97. HR: 92. RR: 16. O2 saturation: 96%. Temp: 97.5 F. Pain level now: 7/10. Hypertensive. Oxygen saturation normal. Appearance: Alert. Oriented X3. Patient in mild distress. (non-toxic). Eyes: Pupils equal, round and reactive to light. Eyes normal inspection. CVS: Normal heart rate and rhythm. Heart sounds normal. Pulses normal. Respiratory: No respiratory distress. Breath sounds normal. Chest nontender. No rales, rhonchi or wheezes. Abdomen: Soft. Moderate tenderness in the left lower quadrant. No guarding, rebound tenderness or Vergara's sign present. No organomegaly. No mass. Skin: Skin warm and dry. Normal skin color. No rash. Normal skin turgor. Extremities: Extremities exhibit normal ROM. No lower extremity edema. Neuro: No motor deficit. No sensory deficit. LABS, X-RAYS, AND EKG Laboratory Tests: UA-Culture if indicated: (CRISTEL: 02/15/2017 16:30) ( MsgRcvd 02/15/2017 17:42) Final results Test Result Flag Units (Reference) URINE COLOR YELLOW URINE APPEARANCE CLEAR URINE GLUCOSE NEGATIVE (NEGATIVE) URINE BILIRUBIN NEGATIVE (NEGATIVE) URINE KETONE NEGATIVE (NEGATIVE) URINE SPECIFIC GRAVITY 1.010 (1.010-1.030) URINE PH 5.5 (5.0-8.0) URINE PROTEIN NEGATIVE (NEGATIVE) URINE UROBILINOGEN 0.2 EU/dL (0.2-1.0) URINE NITRITE NEGATIVE (NEGATIVE) URINE BLOOD NEGATIVE (NEGATIVE) URINE LEUK ESTERASE NEGATIVE (NEGATIVE) URINE RBC NONE SEEN rbc/hpf (0-1) URINE WBC RARE wbc/hpf (0-1) URINE EPITHELIAL CELLS RARE EPI/hpf (0-5) URINE BACTERIA TRACE (<1+) (NONE SEEN) URINE COMMENT CULT NOT INDICATED URINE CULTURES ARE SET-UP BASED ON THE FOLLOWING CRITERIA:POSITIVE NITRITEPOSITIVE LEUKOCYTE ESTERASEGREATER THAN 10 WHITE BLOOD CELLSMODERATE (2+) OR GREATER BACTERIA CBC w Diff: (CRISTEL: 02/15/2017 16:30) ( MsgRcvd 02/15/2017 17:44) Final results Test Result Flag Units (Reference) WHITE BLOOD COUNT 15.2 H K/uL (4.5-11.5) RED BLOOD COUNT 5.23 M/uL (4.50-5.90) HEMOGLOBIN 15.8 gm/dL (13.5-17.5) HEMATOCRIT 46.7 % (41.0-53.0) MEAN CELL VOLUME 89 fL (80-100) MEAN CORPUSCULAR HGB 30 pg (26-34) MEAN CORPUSCULAR HGB CONC 34 g/dL (31-37) RED CELL DISTRIBUTION WIDTH 14.3 % (11.6-14.8) PLATELET COUNT 250 K/uL (150-400) NEUTROPHIL % 77.5 H % (50-75) LYMPH % 16.1 L % (25-40) MONO % 5.1 % (3-14) EOSINOPHIL % 1.0 % (0-4) BASOPHIL % 0.3 % (0-2) PT with INR: (CRISTEL: 02/15/2017 16:30) ( [facility] 02/15/2017 17:44) Final results Test Result Flag Units (Reference) INR 0.9 (0.8-1.2) Low Intensity Therapy: INR 1.5-2.0 PT range 18.5-23.1Mod.Intensity Therapy: INR 2.0-3.0 PT range 23.1-31.5High Intensity Therapy: INR 2.5-3.5 PT range 27.4-35.5High Intensity Therapy 2: INR 3.0-4.0 PT range 31.5-39.3 CMP: (CRISTEL: 02/15/2017 16:30) ( [facility] [place] 02/15/2017 18:10) Final results Test Result Flag Units (Reference) GLUCOSE 137 H mg/dL (70-110) BUN 13 mg/dL (7-18) CREATININE 0.7 mg/dL (0.6-1.3) Estimated GFR >60 mL/min Estimated GFR- >60 mL/min Note: Persistent reduction over 3 months in eGFR<60 mL/min/1.73 m2 defines CKD. Patients with eGFR values>=60 mL/min/1.73 m2 may also have CKD if evidence ofpersistent proteinuria. Additional information may be foundat www.kidney.org. SODIUM 138 mmol/L (136-145) POTASSIUM 4.1 mmol/L (3.5-5.1) CHLORIDE 101 mmol/L (98-107) CARBON DIOXIDE 30 mmol/L (21-32) CALCIUM 8.9 mg/dL (8.5-10.1) TOTAL PROTEIN 7.1 g/dL (6.4-8.2) ALBUMIN 3.3 g/dL (3.3-5.0) BILIRUBIN, TOTAL 0.5 mg/dL (0.0-1.0) ALKALINE PHOSPHATASE 85 U/L (46-116) AST (SGOT) 31 U/L (15-37) ALT (SGPT) 42 U/L (12-78) LIPASE 211 U/L (73-393) AMYLASE 44 U/L (25-115) . PROGRESS AND PROCEDURES Course of Care: the patient is a 41-year-old male presenting for evaluation of abdominal pain. Because of the patient's prior evaluation, do not feel repeat imaging is warranted at this time. Patient states that he will try to get his pain under control as well as nausea. Because of the patient's worsening pain, was considering admission to the hospital however patient states that if his laboratory studies are not improved or if they are worsening, patient will be agreeable to the admission to the hospital. The patient's white blood cells were noted to be improved from 16. Patient Now at 15. Because of the patient's improvement with blood cell count, patient states that he feels comfortable with going home. Patient states he does not want to be admitted. Patient is able to tolerate by mouth while here in the emergency department. 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 Patient states that he will return immediately for any worsening or concerns. Had a discussion with the patient in regards to his workup. Emergency department including diagnosis, home care, follow-up, and return precautions. All questions have been answered. The patient expressed understanding of these instructions and was agreeable to them. CLINICAL IMPRESSION Acute left lower quadrant abdominal pain. 02/15/2017 17:57 BP: 137/76. HR: 96. RR: 15. O2 saturation: 96%. Pain level now: 8/10. Moderate nausea with vomiting (acute). Blood pressure normal. Oxygen saturation normal. Diverticulitis of the colon (subsequent encounter). INSTRUCTIONS Warnings: GENERAL WARNINGS: Return or contact your physician immediately if your condition worsens or changes unexpectedly, if not improving as expected, or if other problems arise. SPECIFICALLY, return if you develop pain, fever, vomiting, the inability to keep fluids down, blood in vomitus, blood in diarrhea, fainting or lightheadedness. Your Current Medications: CONTINUE TAKING THE FOLLOWING MEDICATIONS: Ciprofloxacin 500 mg*. Flagyl 500 mg*. Sidney 7.5 mg*. Probiotic*. Vivanz*. Prescription Medications: Zofran (orally disintegrating tablets) 4 mg: take 1 orally every 8 hours as needed for nausea and vomiting. Dispense fifteen (15). No refill. Substitution is permissible. Follow-up: Return to the emergency department as needed. Follow up with your doctor in three days. Reason for referral: recheck today's concerns. Summary of care provided to patient via paper. Screening today revealed the patient's blood pressure to be in the normal range. The patient should follow up with a primary care provider for blood pressure management. Understanding of the discharge instructions verbalized by patient. (Electronically signed by Oscar Dangelo Dr. 02/18/2017 6:19)
--- NOTE | 2017-02-15 18:32 | ED NURSING NOTES ---
Clinical Report - Nurses [facility] [address] [place] [address] 02/15/2017 15:58 Patient: BISHOP GLOVER TRIAGE Triage time 16:14 Feb 15 2017. Acuity: LEVEL 3. Chief Complaint: ABDOMINAL PAIN, NAUSEA and VOMITING. Alert. No acute distress. --16:20 Adama Anthony R.N. 16:14 02/15/17. BP: 159/97. HR: 92. RR: 16. O2 saturation: 96% on room air. Temp: 97.5 F. Pain level now: 02/22. --16:20 Adama Anthony R.N. Weight: 155.1 kg stated. Height/Length: 74 inches Per Patient. BMI: 43.9. --16:14 Adama Anthony R.N. Medications [place] 7.5 mg. --16:18 Adama Anthony R.N. Flagyl 500 mg. --16:18 Adama Anthony R.N. Ciprofloxacin 500 mg. --16:18 Adama Anthony R.N. Probiotic. --16:18 Adama Anthony R.N. Vivanz. --16:18 Adama Anthony R.N. Allergies Keflex. --16:17 Adama Anthony R.N. History Arrived by private vehicle. Historian: patient and family. Accompanied by family. Primary care physician notified of patient's arrival. Onset. (Wednesday). ( Pt has a Hx of diverticulitis, diagnosed last year. He was seen at [facility] this AM for acute abdominal pain and nausea/vomiting. He was dc'd with instructions to return if pain became worse. He says his pain is the worst it has been and presents in acute discomfort.). He has had nausea, vomiting and abdominal pain. No diarrhea or fever. 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 PAST MEDICAL HX: Immunizations: up-to-date. SOCIAL HX: Heavy tobacco smoker- 1 pack per day. Occasional alcohol use. No drug use. No infectious disease exposure. No known contact with a sick individual. ABUSE ASSESSMENT: No report of abuse. SELF HARM ASSESSMENT: A self harm assessment was performed. The patient answered "no" to the question "Have you recently felt down, depressed, or hopeless?". FALL RISK ASSESSMENT: Fall risk assessment completed. No fall risk identified. NUTRITIONAL RISK ASSESSMENT: The nutritional risk assessment revealed no deficiencies. FUNCTIONAL ASSESSMENT: Functional assessment: no impairments noted. LEARNING NEEDS ASSESSMENT: The learning needs assessment revealed no barriers. SKIN INTEGRITY ASSESSMENT: Skin integrity risk assessment completed. No skin integrity risk identified. --16:20 Adama Anthony R.N. PROBLEMS: Headache. Substance Abuse. Cellulitis. Hypertension. Leukocytosis. Sick Contact. Pancreatitis. Abscess. Pulmonary Embolism. Diabetes Mellitus. --16:17 Adama Anthony R.N. ADDITIONAL SURGERIES: Dental Surgery. I/D of abscess. Knee Surgery. --16:19 Adama Anthony R.N. Interventions ID band on patient. To room. --16:20 Adama Anthony R.N. PHYSICAL ASSESSMENT Ambulatory to room. GENERAL / NEURO / PSYCH: Alert. Oriented X 4. Appears in pain. HEENT: Mucous membranes are pink. RESPIRATORY: Respirations not labored. CVS: Capillary refill less than 2 seconds. GI / : Abdominal tenderness in the left lower quadrant and lower abdomen. Guarding present. Guarding present. SKIN: Skin is warm and dry. --16:34 Adama Anthony R.N. CVS: ( Pt is reporting some chest pain; reports it started this AM. Sternal in location, sharp in nature.). --16:55 Adama Anthony R.N. NURSING PROGRESS NOTES The plan of care for this patient has been created. Monitoring of patient in place. Patient gowned. Head of bed elevated. Reassurance given. Two patient identifiers checked. Call light placed in reach. Side rails up x 2. Bed placed in lowest position. Brakes of chair on. Patient ready for evaluation- ED physician notified. --16:34 Adama Anthony R.N. Patient ID band checked for patient name and birthdate: patient confirmed. Instructions provided to collect clean catch urine and patient verbalized understanding. Clean catch urine collected with return of yellow-colored urine; sample sent to lab. Specimen labeled in the presence of the patient. ( Spouse at bedside.). --16:34 Adama Anthony R.N. 16:36 02/15/2017 Site #1 started via IV in the left antecubital space with an 20g angiocath, with aseptic technique and good blood return; one attempt. Blood drawn: rainbow set. Labeled in the presence of the patient and sent to the lab. Saline lock flushed with 10 mL saline. --16:36 Adama Anthony R.N. 16:46 02/15/2017 Zofran (Ondansetron HCl) IVP 4 mg given over 2 minute(s) via site #1. Allergies verified and confirmed 5 rights. IV patency established. IV site checked: no pain, redness, or swelling. IV flushed thoroughly pre- and post-medication administration. IVP given by RN. --16:46 Adama Anthony R.N. ( Pt is very cooperative, able to make needs known, MD aware of Pt's presence in ED.). --16:50 Adama Anthony R.N. EKG time: (1658). EKG was ordered, performed by a tech and shown to the ED physician. --17:23 [place] 17:56 02/15/2017 Started bag #1 1000 mL IV Fluids IV NS (Saline); bolus of 1000 mL over 1 hour(s) via site #1 via IV pump. Allergies verified and confirmed 5 rights. IV patency established. IV site checked: no pain, redness, or swelling. IV flushed thoroughly pre- and post-medication administration. Completed per protocol. --17:56 Adama Anthony R.N. 17:56 02/15/2017 Dilaudid (HYDROmorphone HCl PF) IVP 1 mg given over 2 minute(s) via site #1. Allergies verified, confirmed 5 rights and sedative warning given to the patient. IV patency established. IV site checked: no pain, redness, or swelling. IV flushed thoroughly pre- and post-medication administration. IVP given by RN. --17:56 Adama Anthony R.N. 17:57 02/15/17. BP: 137/76. HR: 96. RR: 15. O2 saturation: 96% on room air. Pain level now: 8/10. --17:58 Adama Anthony R.N. 17:51 02/15/2017 Zofran IVP Response: symptoms have improved. --18:01 Adama Anthony R.N. ( Pt in room, monitoring VS, spouse in/out of room, Pt reports nausea is starting to return. Asking for more Zofran.). --18:02 Adama Anthony R.N. 18:36 02/15/2017 Dilaudid IVP Response: no adverse reaction pain is improving. Symptoms have improved. --18:46 Adama Anthony R.N. late entry - 18:40 02/15/17. ( Brought paperwork in to Pt, family present, asked Pt if he was still nauseated and he stated his symptoms have improved, denied wanting a dose before DC.). --18:48 Adama Anthony R.N. 18:40 02/15/2017 IV Fluids IV NS Discontinued: bag #1 STOPPED upon discharge. Total amount infused: 500 mL. IV patency established. IV site checked: no pain, redness, or swelling. IV flushed thoroughly. --18:45 Adama Anthony R.N. 18:41 02/15/2017 Site #1 removed upon discharge. Bandaid applied. --18:46 Adama Anthony R.N. DISPOSITION / DISCHARGE Departure time: 18:45 Feb 15 2017. Condition at departure: improved and stable. The goals identified in the patient's plan of care were met. No learning barriers present. Discharge instructions provided and reviewed with the patient. Reviewed medication(s) side effects, precautions, dosing and course information. Prescription(s) given to the patient (Zofran ODT). Reviewed referral to a primary care physician for followup. Patient verbalized understanding. Written instructions provided in Bel[place]ian. The patient was discharged home and accompanied by spouse and family. He left the Emergency Department ambulatory and via private vehicle. Spouse driving. ( Pt dc'd in stable condition, ambulatory, reports he is feeling better, pain and nausea are improved. Pt left with spouse and other family, verbalized understanding of DC instructions. Left with paperwork in hand.). --18:45 Adama Anthony R.N. 18:43 02/15/17. BP: 153/86 taken while sitting. HR: 89. RR: 24. O2 saturation: 98% on room air. Temp: 97.9 F. FLACC pain scale: 10. --18:45 Adama Anthony R.N. Locked/Released at 02/15/2017 19:21 by Adama Anthony R.N.
--- NOTE | 2017-02-15 18:32 | ED ORDER SUMMARY ---
..... Patient: BISHOP GLOVER OrderSheet [facility] VisitID: [id number] [place] [address] 41y, M Registration Date/Time: 02/15/2017 ORDER SHEET Weight: 155.1 kg (stated) Allergies: Keflex GENERAL ORDERS: Brim Blocker (Continuous) (16:35 02/15/2017 MCook R.N. per protocol) (16:37 MCook R.N.) Pulse oximeter (16:35 02/15/2017 MCook R.N. per protocol) (16:37 MCook R.N.) EKG - ER Stat (16:35 02/15/2017 MCook R.N. per protocol) (Ack 16:38 LNations ER Tech1) (16:57 MCook R.N.) CBC w Diff Urgent (16:56 02/15/2017 MCook R.N. per protocol) (16:56 MCook R.N.) CMP Urgent (16:56 02/15/2017 MCook R.N. per protocol) (16:56 MCook R.N.) UA-Culture if indicated Urgent (16:56 02/15/2017 MCook R.N. per protocol) (16:56 MCook R.N.) Amylase Urgent (16:56 02/15/2017 MCook R.N. per protocol) (16:56 MCook R.N.) Lipase Urgent (16:56 02/15/2017 MCook R.N. per protocol) (16:56 MCook R.N.) PT with INR Urgent (16:56 02/15/2017 MCook R.N. per protocol) (16:56 MCook R.N.) MEDICATION ORDERS: IV FLUIDS: IV Saline Lock (16:35 02/15/2017 MCook R.N. per protocol) (16:36 MCook R.N.) Zofran IV 4 mg (NOW) (16:45 02/15/2017 MCook R.N. verbal order read back to Mounika Hawthorne) (16:46 MCook R.N.) IV NS : initial bolus 1000 mL (1000 mL/hr), then none - for X1 (NOW) (17:15 02/15/2017 Mounika Hawthorne) (17:56 Ross Bond) Dilaudid IV 1 mg (HIGH ALERT MEDICATION, NOW) (17:15 02/15/2017 Mounika Hawthorne) (17:56 Ross Bond) ORDER SHEET NOTES: [Electronically signed by Adama Anthony R.N. (19:02/15/2017)] [Electronically signed by Oscar Dangelo Dr. (06:19 02/18/2017)] [Electronically locked/signed by Adama Anthony R.N. (19:02/15/2017)]
--- NOTE | 2017-02-15 18:32 | ED ORDER SUMMARY ---
..... Patient: BISHOP GLOVER OrderSheet [facility] VisitID: [id number] [place] [address] 41y, M Registration Date/Time: 02/15/2017 ORDER SHEET Weight: 155.1 kg (stated) Allergies: Keflex GENERAL ORDERS: Casing Sewer (Continuous) (16:35 02/15/2017 MCook R.N. per protocol) (16:37 MCook R.N.) Pulse oximeter (16:35 02/15/2017 MCook R.N. per protocol) (16:37 MCook R.N.) EKG - ER Stat (16:35 02/15/2017 MCook R.N. per protocol) (Ack 16:38 LNations ER Tech1) (16:57 MCook R.N.) CBC w Diff Urgent (16:56 02/15/2017 MCook R.N. per protocol) (16:56 MCook R.N.) CMP Urgent (16:56 02/15/2017 MCook R.N. per protocol) (16:56 MCook R.N.) UA-Culture if indicated Urgent (16:56 02/15/2017 MCook R.N. per protocol) (16:56 MCook R.N.) Amylase Urgent (16:56 02/15/2017 MCook R.N. per protocol) (16:56 MCook R.N.) Lipase Urgent (16:56 02/15/2017 MCook R.N. per protocol) (16:56 MCook R.N.) PT with INR Urgent (16:56 02/15/2017 MCook R.N. per protocol) (16:56 MCook R.N.) MEDICATION ORDERS: IV FLUIDS: IV Saline Lock (16:35 02/15/2017 MCook R.N. per protocol) (16:36 MCook R.N.) Zofran IV 4 mg (NOW) (16:45 02/15/2017 MCook R.N. verbal order read back to Mounika Hawthorne) (16:46 MCook R.N.) IV NS : initial bolus 1000 mL (1000 mL/hr), then none - for X1 (NOW) (17:15 02/15/2017 Mounika Hawthorne) (17:56 Ross Bond) Dilaudid IV 1 mg (HIGH ALERT MEDICATION, NOW) (17:15 02/15/2017 Mounika Hawthorne) (17:56 Ross Bond) ORDER SHEET NOTES: [Electronically signed by Adama Anthony R.N. (19:02/15/2017)] [Electronically signed by Oscar Dangelo Dr. (06:19 02/18/2017)] [Electronically locked/signed by Adama Anthony R.N. (19:02/15/2017)]
--- NOTE | 2017-02-18 06:20 | ED MAR SUMMARY ---
..... Medication Administration Record [facility] [address] [place] [address] Patient: BISHOP GLOVER Visit ID: [id number] 41y, M Weight: 155.1 kg Height/Length: 74 in BMI: 43.9 ALLERGIES: Keflex Given 16:46 02/15/2017 Adama Anthony R.N. Medication Administered: ZOFRAN [IVP] (ONDANSETRON HCL), Dose: 4 mg IVP over 2 minute(s), Site: #1 left AC. Medication Ordered: Zofran IV 4 mg (NOW). Start 17:56 02/15/2017 Adama Anthony R.N., Stop 18:40 02/15/2017 Adama Anthony R.N. Medication Administered: IV NS (SALINE), Dose: IV Fluids, Bolus: 1000 mL over 1 hour(s), Dispensed: 1000 mL bag, Site: #1 left AC. Medication Ordered: IV NS : initial bolus 1000 mL (1000 mL/hr), then none - for X1 (NOW). Given 17:56 02/15/2017 Adama Anthony R.N. Medication Administered: DILAUDID [IVP] (HYDROMORPHONE HCL PF), Dose: 1 mg IVP over 2 minute(s), Site: #1 left AC. Medication Ordered: Dilaudid IV 1 mg (HIGH ALERT MEDICATION, NOW).
--- NOTE | 2017-02-18 06:20 | ED DISCHARGE INSTRUCTIONS ---
Patient: BISHOP GLOVER General Instructions Located Within [facility] VisitID: [id number] [place] [address] 41y, M Registration Date/Time: 02/15/2017 Acute left lower quadrant abdominal pain. 02/15/2017 17:57 BP: 137/76. HR: 96. RR: 15. O2 saturation: 96%. Pain level now: 8/10. Moderate nausea with vomiting (acute). Blood pressure normal. Oxygen saturation normal. Diverticulitis of the colon (subsequent encounter). INSTRUCTIONS Warnings: GENERAL WARNINGS: Return or contact your physician immediately if your condition worsens or changes unexpectedly, if not improving as expected, or if other problems arise. SPECIFICALLY, return if you develop pain, fever, vomiting, the inability to keep fluids down, blood in vomitus, blood in diarrhea, fainting or lightheadedness. Your Current Medications: CONTINUE TAKING THE FOLLOWING MEDICATIONS: Ciprofloxacin 500 mg*. Flagyl 500 mg*. [place] 7.5 mg*. Probiotic*. Vivanz*. Prescription Medications: Zofran (orally disintegrating tablets) 4 mg: take 1 orally every 8 hours as needed for nausea and vomiting. Dispense fifteen (15). No refill. Substitution is permissible. Follow-up: Return to the emergency department as needed. Follow up with your doctor in three days. Reason for referral: recheck today's concerns. Summary of care provided to patient via paper. Screening today revealed the patient's blood pressure to be in the normal range. The patient should follow up with a primary care provider for blood pressure management. Understanding of the discharge instructions verbalized by patient. ADDITIONAL INFORMATION Abdominal Pain,Uncertain Cause [Male] Based on your visit today, the exact cause of your abdominalpain is not clear. Your exam and tests do not indicate a dangerous cause at this time. However, the signs of a serious problem may take more time to appear. Although your evaluation was reassuring today, sometimes early in the course of many conditions, exam and lab tests can appear normal. Therefore, it is important for you to watch for any new symptoms or worsening of your condition. Causes It may not be obvious what caused your symptoms. Pay attention to things that do seem to make your symptoms worse or better and discuss this with your doctor when you follow up. Diagnosis The evaluation of abdominal pain in the emergency department may onlyrequire an exam by the doctor or it may include blood, urine or imaging studies, depending on many factors. Sometimes exams and tests can identify a cause but in many cases, a clear cause is not found. Further testing at follow up visits may help to suggest a clear diagnosis. Home Care Rest as much as possible until your next exam. Try to avoid any medications (unless otherwise directed by your doctor), foods, activities, or other factors that you may have contributed to your symptoms. Try to eat foods that you know that you have tolerated well in the past. Certain diets may be recommended for some conditions that cause abdominal pain. However, since the cause of your symptoms may not be clear, discuss your diet more with your primary care provider or specialist for further recommendations. Eating several small meals per day as opposed to 2 or 3 larger meals may help. Monitor closely for anything that may make your symptoms worse or better. Pay close attention to symptoms below that may indicate worsening of your condition. Follow Up and Precautions See your doctoras instructed or sooneror if your symptoms are not improving.In some cases, you may need more testing. When to Seek Medical Attention Contact your doctor or see medical attention ifany of the following occur: Pain is becoming worse You are unable to take your medications due to excessive vomiting Swelling of the abdomen Fever of 100.4F (38C) or higher, or as directed by your health care provider Blood in vomit or bowel movements (dark red or black color) Jaundice (yellow color of eyes and skin) New onset of weakness, dizziness or fainting New onset of chest, arm, back, neck or jaw pain Diverticulitis Some people develop pouches along the wall of the colon as they get older. The pouches,called diverticuli, usually cause no symptoms. If the pouches become blocked, an infection may occur known as diverticulitis. This causes lower abdominal pain and fever. If not treated, it can become a serious condition, causing an abscess to form inside the pouch. The abscess may block the instestinal tract even or rupture, spreading infection throughout the abdomen. When treatment is started early, oral antibiotics alone may be enough to cure diverticulitis. This method is tried first. However, if you do not improve or if your condition worsens while you are trying oral antibiotics, it will be necessary to admit you to the hospital for IV antibiotics. Severe cases may require surgery. Home care The following guidelines will help you care for your diverticulitis at home: During the acute illness, rest and follow a low-fiber diet: Foods to Include: flake cereal, mashed potatoes, pancakes, waffles, pasta, white bread, rice, applesauce, bananas, eggs, meat, fish, poultry, tofu, cooked vegetables. Take antibiotics exactly as directed. Do not miss any doses or stop taking the medication, even if you feel better. Monitor your temperature and report any rising temperature to your doctor. Preventing future attacks Once you have had an episode of diverticulitis, you are at risk of having a recurrence. After you have recovered from this episode, you may be able to reduce your risk by eating a high-fiber diet (2035 gm/day of fiber). This cleans out the colon pouches that already exist and prevent new ones from forming. Foods high in fiber includes fresh fruits and edible peelings, raw or lightly cooked vegetables, whole grain cereals and breads, dried beans and peas, bran. Follow-up care Follow up with your doctor as advised or sooner if you are not improving in the nexttwo days. When to seek medical care Get prompt medical attention if any of the following occur: Fever of 100.4F (38C) or higher, or as directed by your health care provider Repeated vomiting or swelling of the abdomen Weakness, dizziness, light-headedness Increasing abdominal pain that becomes severe or spreads to your back Pain that moves to the right lower abdomen Rectal bleeding (red, black or maroon color of the stools) Unexpected vaginal bleeding Ondansetron Oral disintegrating tablet What is this medicine? ONDANSETRON (on [place] se berry) is used to treat nausea and vomiting caused by chemotherapy. It is also used to prevent or treat nausea and vomiting after surgery. How should I use this medicine? These tablets are made to dissolve in the mouth. Do not try to push the tablet through the foil backing. With dry hands, peel away the foil backing and gently remove the tablet. Place the tablet in the mouth and allow it to dissolve, then swallow. While you may take these tablets with water, it is not necessary to do so. Talk to your cyber security manager regarding the use of this medicine in children. Special care may be needed. What side effects may I notice from receiving this medicine? Side effects that you should report to your doctor or health family day care worker as soon as possible: allergic reactions like skin rash, itching or hives, swelling of the face, lips, or tongue breathing problems dizziness fast or irregular heartbeat feeling faint or lightheaded, falls fever and chills swelling of the hands and feet tightness in the chest Side effects that usually do not require medical attention (report to your doctor or health family day care worker if they continue or are bothersome): constipation or diarrhea headache What may interact with this medicine? Do not take this medicine with any of the following medications: -apomorphine -cisapride -dofetilide -dronedarone -pimozide -thioridazine -ziprasidone This medicine may also interact with the following medications: -carbamazepine -phenytoin -rifampicin -tramadol -other medicines that prolong the QT interval (cause an abnormal heart rhythm) What if I miss a dose? If you miss a dose, take it as soon as you can. If it is almost time for your next dose, take only that dose. Do not take double or extra doses. Where should I keep my medicine? Keep out of the reach of children. Store between 2 and 30 degrees C (36 and 86 degrees F). Throw away any unused medicine after the expiration date. What should I tell my health care provider before I take this medicine? They need to know if you have any of these conditions: heart disease history of irregular heartbeat liver disease low levels of magnesium or potassium in the blood an unusual or allergic reaction to ondansetron, granisetron, other medicines, foods, dyes, or preservatives or trying to get breast-feeding What should I watch for while using this medicine? Check with your doctor or health family day care worker as soon as you can if you have any sign of an allergic reaction. You have been given the following additional information: Abdominal Pain, Unknown Cause, (Male) Diverticulitis Ondansetron Oral disintegrating tablet (Electronically signed by Oscar Dangelo Dr. 02/18/2017 6:19)
--- NOTE | 2017-02-18 06:20 | ED MED RECONCILIATION SUMMARY ---
Patient: BISHOP GLOVER Medication Reconciliation Report [facility] VisitID: [id number] [address] [place] [address] 41y, M Registration Date/Time: 02/15/2017 Weight: 155.1 kg Height/Length: 74 in. BMI: 43.9 ALLERGIES: Keflex The patient's Home Medications are listed below: CONTINUE TAKING THE FOLLOWING MEDICATIONS: Ciprofloxacin 500 mg Flagyl 500 mg [place] 7.5 mg Probiotic Vivanz The source(s) of the original Home Medication information: Not obtained. The following Medications were given to the patient in the Emergency Department: Zofran [IVP] IVP 4 mg, administered: 02/15/2017 4:46:00 PM IV NS IV Fluids bolus 1000 mL over 1 hour(s), administered: 02/15/2017 5:56:00 PM Dilaudid [IVP] IVP 1 mg, administered: 02/15/2017 5:56:00 PM The following Medications were prescribed to the patient: Zofran (orally disintegrating tablets) 4 mg: take 1 orally every 8 hours as needed for nausea and vomiting. Dispense fifteen (15). No refill. Substitution is permissible. -- Oscar Dangelo Dr.
--- NOTE | 2017-02-18 06:20 | ED MAR SUMMARY ---
..... Medication Administration Record [facility] [address] [place] [address] Patient: BISHOP GLOVER Visit ID: [id number] 41y, M Weight: 155.1 kg Height/Length: 74 in BMI: 43.9 ALLERGIES: Keflex Given 16:46 02/15/2017 Adama Anthony R.N. Medication Administered: ZOFRAN [IVP] (ONDANSETRON HCL), Dose: 4 mg IVP over 2 minute(s), Site: #1 left AC. Medication Ordered: Zofran IV 4 mg (NOW). Start 17:56 02/15/2017 Adama Anthony R.N., Stop 18:40 02/15/2017 Adama Anthony R.N. Medication Administered: IV NS (SALINE), Dose: IV Fluids, Bolus: 1000 mL over 1 hour(s), Dispensed: 1000 mL bag, Site: #1 left AC. Medication Ordered: IV NS : initial bolus 1000 mL (1000 mL/hr), then none - for X1 (NOW). Given 17:56 02/15/2017 Adama Anthony R.N. Medication Administered: DILAUDID [IVP] (HYDROMORPHONE HCL PF), Dose: 1 mg IVP over 2 minute(s), Site: #1 left AC. Medication Ordered: Dilaudid IV 1 mg (HIGH ALERT MEDICATION, NOW).
--- NOTE | 2017-02-18 06:20 | ED MED RECONCILIATION SUMMARY ---
Patient: BISHOP GLOVER Medication Reconciliation Report [facility] VisitID: [id number] [address] [place] [address] 41y, M Registration Date/Time: 02/15/2017 Weight: 155.1 kg Height/Length: 74 in. BMI: 43.9 ALLERGIES: Keflex The patient's Home Medications are listed below: CONTINUE TAKING THE FOLLOWING MEDICATIONS: Ciprofloxacin 500 mg Flagyl 500 mg [place] 7.5 mg Probiotic Vivanz The source(s) of the original Home Medication information: Not obtained. The following Medications were given to the patient in the Emergency Department: Zofran [IVP] IVP 4 mg, administered: 02/15/2017 4:46:00 PM IV NS IV Fluids bolus 1000 mL over 1 hour(s), administered: 02/15/2017 5:56:00 PM Dilaudid [IVP] IVP 1 mg, administered: 02/15/2017 5:56:00 PM The following Medications were prescribed to the patient: Zofran (orally disintegrating tablets) 4 mg: take 1 orally every 8 hours as needed for nausea and vomiting. Dispense fifteen (15). No refill. Substitution is permissible. -- Oscar Dangelo Dr.
== END 2017-02-15 18:45 | disposition home or self-care (01) ==
LOC: ED SRH 15:59
DX: K57.32 Diverticulitis of large intestine without perforation or abscess without bleeding (principal); R10.32 Left lower quadrant pain; R11.2 Nausea with vomiting, unspecified; I10 Essential (primary) hypertension; E11.9 Type 2 diabetes mellitus without complications; Z79.899 Other long term (current) drug therapy; Z88.1 Allergy status to other antibiotic agents
CPT/HCPCS: 90004; 90100; 92235; 92530; 94060; 95059